=== PATIENT | female | born 1985 | race Caucasian/White ===

== ENCOUNTER 2016-07-26 14:16 | Outpatient (RCR) | payer OTHER ==
[~2016-07-26 14:16] MED LIST: COLA100C3 PO; CYCL10TA PO; GABA-282 PO; HYDR-3716 PO; IBUP80TA PO; NICO7DIS2 TD; OXYC1TAB23 PO; PERCOCET PO; PRED20TA PO; ROLLMIS2 XX; VALI5TAB PO; WELL100T PO
== END 2016-08-04 ==
LOC: M PT 14:16
PROVIDERS: ATTEND Nurse Practitioner
DX: Z51.89 Encounter for other specified aftercare (principal); M51.16 Intervertebral disc disorders with radiculopathy, lumbar region

== ENCOUNTER → 2016-09-04 | Outpatient (CLI) | payer OTHER ==
[2016-09-04 12:50] LABS: BASO # 0.1 K/mm3 (0.0-0.2); BASO % 1.1 % (0.0-1.0); EOS # 0.4 K/mm3 (0.0-0.50); EOS % 5.2 % (0.0-3.0); LYMPH # 3.3 K/mm3 (1.5-4.5); LYMPH % 38.3 % (24.0-44.0); MEAN CORPUSCULAR HEMOGLOBIN 30.4 pg (27.0-33.0); MEAN CORPUSCULAR HGB CONC 32.5 g/dl (32.0-36.5); MEAN CORPUSCULAR VOLUME 93.4 fl (80.0-96.0); MONO # 0.3 K/mm3 (0.0-0.8); MONO % 3.8 % (0.0-5.0); NEUTROPHILS # 4.2 K/mm3 (1.8-7.7); NEUTROPHILS % 50.3 % (36.0-66.0); RED CELL DISTRIBUTION WIDTH 12.6 % (11.5-14.5); WHITE BLOOD COUNT 8.4 K/mm3 (4.0-10.0)
[2016-09-04 13:32] LABS: VITAMIN B12 LEVEL 358 PG/ML
[2016-09-06 00:07] LABS: Lyme Disease IgG/IgM Antibodie <0.91 ISR (0.00-0.90); Lyme Disease IgM Ab Quantitati <0.80 index (0.00-0.79)
== END ==
LOC: M LAB 11:13
PROVIDERS: ATTEND Physician Assistant Medical
DX: M62.81 Muscle weakness (generalized) (principal)

== ENCOUNTER → 2016-09-11 | Outpatient (CLI) | payer OTHER ==
[2016-09-11 12:16] LABS: THYROXINE (T4) 2.1 UG/DL (4.5-12.0)
== END ==
LOC: M LAB 10:10
PROVIDERS: ATTEND Physician Assistant Medical
DX: E03.9 Hypothyroidism, unspecified (principal)

== ENCOUNTER → 2016-09-13 | Outpatient (CLI) | payer OTHER ==
--- NOTE | 2016-09-14 05:51 | REP ---
Clinical: Hypothyroidism. Technique: Real time hodge scale and color evaluation of the thyroid gland using curved array transducer. Findings: The thyroid gland is diffusely heterogeneous and mildly hyperemic without discrete focal cystic or nodule/mass. Right lobe measures 4.3 x 2.1 x 1.7 cm. Left lobe measures 4.1 x 1.6 x 1.7 cm. Isthmus measures 4.6 mm in width. Impression: Heterogeneous mildly hyperemic thyroid gland. No discrete cyst or nodule/mass identified. Signed by Ceferino King MD 09/14/2016 05:41 A
== END ==
LOC: M RAD 11:13
PROVIDERS: ATTEND Physician Assistant Medical
DX: E03.9 Hypothyroidism, unspecified (principal)

== ENCOUNTER 2016-10-03 13:56 | Outpatient (RCR) | payer OTHER | END 2016-10-04 | LOC: M PT 13:56 | PROVIDERS: ATTEND Physician Assistant Medical | DX: Z51.89 Encounter for other specified aftercare (principal); M54.2 Cervicalgia; M96.1 Postlaminectomy syndrome, not elsewhere classified ==

== ENCOUNTER → 2016-10-06 | Outpatient (CLI) | payer OTHER ==
[~2016-10-06] MED LIST changes: +ALBU17IN2 INH; +LEVO150T7 PO; +PRED10TA PO; +PREG25CA PO
--- NOTE | 2016-10-06 09:40 | REP ---
REASON: Mid abdominal pain. COMPARISON: None. Multiple sonographic images of the liver show the hepatic parenchymal pattern to be within normal limits. There are no masses or ductal dilatation. The common bile duct measures 4 mm. Multiple ultrasonographic images of the gallbladder show no abnormalities. There are no choleliths or pericholecystic edema. The imaged portion of the pancreas and right kidney were seen to be unremarkable. No free fluid was seen in the abdomen. IMPRESSION: Unremarkable right upper quadrant ultrasonography as described above. Signed by Jose Luis Lee DO 10/06/2016 11:55 A
== END ==
LOC: M RAD 07:33
PROVIDERS: ATTEND Physician Assistant Medical
DX: R10.9 Unspecified abdominal pain (principal)

== ENCOUNTER 2016-10-09 18:02 | Emergency (ER) | payer OTHER ==
[~2016-10-09] VITALS: Ht 162.6 cm; Wt 76.7 kg
[~2016-10-09 18:02] MED LIST changes: -ALBU17IN2 INH; -LEVO150T7 PO; -PRED10TA PO; -PREG25CA PO
[2016-10-09] MEDS ORDERED: LEVO150T7 PO (18:13)
[2016-10-09] MEDS ORDERED: PREG25CA PO (18:13)
[2016-10-09] MEDS ORDERED: HYDR-3716 PO (18:13)
[2016-10-09] MEDS ORDERED: ALBUTEROL SULFATE 2.5 MG/0.5 ML INH NEB SOLN NEB ONE (20:15)
[2016-10-09] MEDS ORDERED: IPRATROPIUM 0.5MG/ALBUTEROL 2.5MG INH SOL UD 3ML (DUONEB)(J7620) NEB ONE (20:15)
[2016-10-09] MEDS ORDERED: predniSONE 20 MG TAB PO ONE (20:15)
[2016-10-09] MEDS ORDERED: ACETAMINOPHEN 325 MG TAB PO ONE (20:15)
[2016-10-09] MEDS ORDERED: ALBU17IN2 INH (20:56)
[2016-10-09] MEDS ORDERED: PRED10TA PO (20:56)
[2016-10-09 21:02] VITALS: BP 128/72
--- NOTE | 2016-10-10 01:01 | REP ---
Clinical: Shortness of breath . Comparison: None . Technique: PA and lateral. Findings: The mediastinum and cardiac silhouette are normal. The lung bolaños are clear and without acute consolidation, effusion, or pneumothorax. The skeletal structures are intact and normal. Impression: 1. No acute cardiopulmonary process. Signed by Ceferino King MD 10/10/2016 12:53 A
== END 2016-10-09 21:03 | disposition home or self-care (01) ==
LOC: M ED 20:00
DX: J45.901 Unspecified asthma with (acute) exacerbation (principal); J06.9 Acute upper respiratory infection, unspecified

== ENCOUNTER → 2016-10-10 | Outpatient (CLI) | payer OTHER ==
[~2016-10-10] MED LIST changes: +ALBU17IN2 INH; +LEVO150T7 PO; +PRED10TA PO; +PREG25CA PO
--- NOTE | 2016-10-11 05:19 | REP ---
Clinical: Right inguinal and pelvic pain. Findings: The visualized small and large bowel is unremarkable. A few scattered sigmoid diverticula noted without acute diverticulitis. Pelvis demonstrates normal bladder and the age-appropriate uterus/adnexa. No pelvic fluid. No obvious adenopathy. No free air. No inguinal hernia. Musculoskeletal structures are intact. Impression: Normal noncontrast CT of the pelvis. Signed by Ceferino King MD 10/11/2016 05:10 A
== END ==
LOC: M RAD 14:22
PROVIDERS: ATTEND Physician Assistant Medical
DX: R10.2 Pelvic and perineal pain (principal)

== ENCOUNTER → 2016-10-12 | Outpatient (CLI) | payer OTHER ==
[2016-10-12 16:09] LABS: THYROXINE (T4) 14.4 UG/DL (4.5-12.0)
== END ==
LOC: M LAB 14:38
PROVIDERS: ATTEND Family Medicine
DX: E03.9 Hypothyroidism, unspecified (principal)

== ENCOUNTER → 2016-10-13 | Outpatient (CLI) | payer OTHER ==
--- NOTE | 2016-10-13 23:51 | ECWPNPC ---
PATIENT NAME: NARENDRA REYNAGA : 1985 GENDER: FEMALE VISIT DATE: 10/13/2016 DISCHARGE DATE: 10/13/16 1322 VISIT LOCKED DATE TIME: PHYSICIAN: STEPHAN AVILES RESOURCE: STEPHAN AVILES REASON FOR APPOINTMENT 1. CHRONIC PAIN HISTORY OF PRESENT ILLNESS FALL RISK SCREENIN31 Y/O FEMALE SENT HER BY SURGEON ,DR. SHARPE DUE TO UNCONTROLLED LOW BACK PAIN.HISTORY OF TWO LUMBAR SURGERIES,FIRST ONE IN AUGUST 2015 AND SECOND ONE MAY 2016.DID WELL FOR TWO MONTHS AFTER SECOND SURGERY AND THEN PAIN AND LOWER EXTREMITY NEUROPATHY HAS GOTTEN WORSE OVER PAST TWO MONTHS.RATING PAIN VAS 4/10.STATES SHE WAS TOLD TO STOP PT BY THERAPIST DUE TO INCREASE IN PAIN OVER THE PAST MONTH.STATES SHE IS LAYING DOWN MOST OF THE TIME.DENIES BOWEL OR BLADDER INCONTINENCE.NO RECENT FEVER,ILLNESS OR WEIGHT LOSS. SCREENING :NO FALLS IN THE PAST YEAR PAIN SCREENING: PATIENT HAS A COMPLAINT OF ACUTE OR CHRONIC PAIN :YES CURRENT MEDICATIONS TAKING VENTOLIN HFA 90 MCG/ACT AEROSOL SOLUTION 1-2 PUFFS NEEDED INHALATION EVERY 4 HRS TAKING LYRICA 25 MG CAPSULE 2 CAPSULES ORALLY BID TAKING PREDNISONE TAPER 1 TAB ORAL TAKING HYDROCODONE-ACETAMINOPHEN 7.5-325 MG TABLET 1 TABLET NEEDED ORALLY EVERY 6 HRS TAKING LEVOTHYROXINE SODIUM 150 MCG TABLET 1 TABLET ON AN EMPTY STOMACH IN THE MORNING ORALLY ONCE A DAY TAKING TUMS 500 MG TABLET CHEWABLE 1 TABLET ORALLY BID DISCONTINUED CHANTIX 1 TAB ORAL DAILY, NOTES: NEW MED PT IS GONNA START TODAY.HAS TO P/U FROM PHARMACY DISCONTINUED AMITRIPTYLINE HCL 50 MG TABLET 1 TABLET ORALLY AT BEDTIME DISCONTINUED GABAPENTIN 300 MG CAPSULE 1 CAPSULE ORALLY THREE TIMES A DAY DISCONTINUED IBUPROFEN 800 MG TABLET 1 TABLET NEEDED ORALLY THREE TIMES A DAY DISCONTINUED COLACE 100 MG CAPSULE 1 CAPSULE ORALLY TWICE PER DAY DISCONTINUED VALIUM 5 MG TABLET 2 TABLET ORALLY ON ARRIVAL TO CLINIC FOR PROCEDURE MDD=2 DISCONTINUED WELLBUTRIN 100 MG TABLET 1 TABLET ORALLY TWICE A DAY DISCONTINUED PERCOCET 5-325 MG TABLET 1-2 TABLET ORALLY EVERY 4- 6 HRS PRN PAIN MDD=6 DISCONTINUED NICOTINE 7 MG/24HR PATCH 24 HOUR 1 PATCH TO SKIN TRANSDERMAL ONCE A DAY MEDICATION LIST REVIEWED AND RECONCILED WITH THE PATIENT PAST MEDICAL HISTORY BACK AND LEFT LEG PAIN, CHRONIC ASTHMA HYPOTHYROID THORACIC BACK PAIN RIGHT GROIN PAIN HEART PALPITATION ALLERGIES PENICILLIN (FOR ALLERGIES USE ONLY): ANAPHYLAXIS: ALLERGY SULFA (FOR ALLERGY USE ONLY): ANAPHYLAXIS: ALLERGY SURGICAL HISTORY SPINE SURGERY LUMBAR L4-L5 08/10/15 HAND SURGERY RIGHT.TENDON--TRIGGER FINGER RELEASE LAMINECTOMY L3-4,L4-5 05/18/16 FAMILY HISTORY FATHER: ALIVE 56 YRS, COLON CANCER, DIAGNOSED WITH STROKE, CANCER MOTHER: ALIVE 53 YRS, DIAGNOSED WITH OTHER SIBLINGS: ALIVE 36 YRS, DIAGNOSED WITH PSYCHIATRIC CONDITIONS 1 SISTER(S) . DAD-ARTHRITIS, COLON CA, HYPERLIPIDEMIAMOM--ARTHRITIS, MYALGIA, HYPERLIPIDEMIA. SOCIAL HISTORY GENERAL: TOBACCO USE ARE YOU A:CURRENT SMOKER HOW MANY CIGARETTES A DAY DO YOU SMOKE?6-10 HOW SOON AFTER YOU WAKE UP DO YOU SMOKE YOUR FIRST CIGARETTE?31-60 MIN HOW OFTEN DO YOU SMOKE CIGARETTES?EVERY DAY PATIENT COUNSELED ON THE DANGERS OF TOBACCO USE AND URGED TO QUIT:04/04/2016 07-15-15 PATIENT HAS STARTED WELLBUTRIN AND NICOTINE PATCHES ARE YOU INTERESTED IN QUITTING?READY TO QUIT PREVIOUS QUIT ATTEMPTS?YES, WITHIN THE LAST 6 MONTHS. COUNSELED THE PATIENT ON TOBACCO USE, CESSATION [id number]/29/2016 07-15-15 ARRANGE PT TO START CHANTIX TODAY ADDITIONAL FINDINGS: TOBACCO USERLIGHT CIGARETTE SMOKER ((1-9 CIGS/DAY) ALCOHOL SCREENING HOW OFTEN DID YOU HAVE A DRINK CONTAINING ALCOHOL IN THE PAST YEAR?NEVER (0 POINTS) DID YOU HAVE A DRINK CONTAINING ALCOHOL IN THE PAST YEAR?YES DID YOU HAVE A DRINK CONTAINING ALCOHOL IN THE PAST YEAR?NO POINTS0 POINTS0 POINTS0 INTERPRETATIONNEGATIVE INTERPRETATIONNEGATIVE RECREATIONAL DRUG USE DRUG USE?NO PATIENT DENIES ABUSE OR MISSUSED OF ANY MEDICATION. PATIENT DENIES USE OF ANY ILLEGAL SUBSTANCE INCLUDING MARIJUANA OR COCAINE. CAFFEINE CAFFEINE USE?YES HOW OFTEN AND HOW MUCH? 2 CUPS OF COFFEE DAILY OCCUPATION: UNEMPLOYED. DIET: REGULAR. EXERCISE: NO REGULAR EXERCISE. MARITAL STATUS: . OTHERS AT HOME: MOTHER, . CONGREGATION NO YAZIDISM BELIEFS THAT WOULD IMPACT HEALTH CARE. LANGUAGE UKRAINIAN. LEARNING BARRIERS / SPECIAL NEEDS BARRIERS TO LEARNING?NO HEARING IMPAIRED?NO VISION IMPAIRED?NO COGNITIVELY IMPAIRED?NO READINESS TO LEARN?YES LEARNING PREFERENCES?NO LEARNING CAPABILITIES PRESENT?YES EMOTIONAL BARRIERS?NO SPECIAL DEVICES?YES :CANE PSYCHOLOGICAL HX TREATMENTNO NEW PATIENT PAIN DIARY TODAY'S VISITNOTES PATIENT DESCRIBES PAIN :BURNING, HAVE IT ALL THE TIME, ACHING, IT COMES AND GOES, SHARP, STABBING, TENDER, THROBBING, SORE, SHOOTING FROM 0-10, WHAT LEVEL IS YOUR PAIN TODAY?8 LEFT LOW BACK AND BUTTOCKS AND LEFT LEG PRECIPITATING FACTORS ANYTHING AND NOTHING ALLEVIATING FACTORS MEDICINE AND HEAT BUT MINIMAL RELIEF IMPACT ON FUNCTION UNABLE TO WORK AND UNABLE TO DO NORMAL ACTIVITIES OF DAILY LIVING WHEN DID YOU LAST EAT? DATE: TIME: WHEN DID YOU LAST DRINK? DATE: TIME: WHAT DID YOU LAST DRINK? MONTHS AGO NAME OF PERSON DRIVING YOU HOME CAB IS THERE A CHANCE YOU COULD BE ?NO HAVE YOU BEEN SICK IN THE LAST WEEK (COLD, COUGH, FEVER, FLU, ETC)NO DO YOU TAKE ANY BLOOD THINNERS?NO LAST DOSE DATE: TIME: DO YOU HAVE ANY RASHES OR OPEN SORES?NO ANY CHANGE IN BOWEL OR BLADDER CONTROL?NO ARE YOU ALLERGIC TO SHELLFISH OR IV DYE?NO ARE YOU DIABETIC?NO DO YOU HAVE A PACEMAKER OR DEFIBRILLATOR?NO ANY NEW PROBLEMS WITH MEDICINES OR NEW ALLERGIESNO ANY NEW PATTERNS OF PAIN OR NUMBNESS?YES INCREASED NUMBNESS TO LEFT FOOT ANY CHANGE IN YOUR MEDICAL CONDITION?NO HAVE YOU FALLEN IN THE LAST 6 MONTHS?NO DO YOU USE ANY TYPE OF TOBACCO (SMOKE, SMOKELESS, CHEW, ETC.)YES ARE YOU ABUSED, NEGLECTED, OR IN AN UNSAFE ENVIRONMENT?NO DO YOU HAVE THOUGHTS OF HURTING YOURSELF OR SOMEONE ELSE?NO DO YOU NEED ANY PRESCRIPTIONS?YES HYDROCODONE DO YOU HAVE ANY OTHER QUESTIONS OR CONCERNS?NO INTENSITY SCALE REVIEWED , NUMBER SCORE0 PAIN CLINIC PFS, CLERGY, PUBLIC HEALTH REFERRALS PFS REFERRAL NEEDED?NO CLERGY REFERRAL NEEDED?NO PUBLIC HEALTH REFERRAL NEEDED?NO WAS THE PROVIDER NOTIFIED OF ANY PERTINENT INFO?NO PATIENT: , DENIES USE OF ANY ILLEGAL SUBSTANCE INCLUDING MARIJUANA OR COCAINE, REPORTS BEING EMOTIONALLY STABLE, REPORTS HAVING A SAFE AND ADEQUATE PLACE TO STORE THE MEDICATIONS, IS AWARE THAT THEY ARE RESPONSIBLE AND GUARDIAN OF THE PRESCRIBED MEDICATIONS, DENIES RECREATIONAL DRUG USE. ADVANCE DIRECTIVES HEALTH CARE PROXY?YES NAME OF HCP MADISYN LOONEY CONTACT # FOR HCP [phone] DO YOU HAVE A COPY WITH YOU?NO DO YOU HAVE A DNR?NO WOULD YOU LIKE MORE INFORMATION?NO LIVING WILL?NO WOULD YOU LIKE MORE INFORMATION?NO POWER OF STOKER INSTALLER?NO WOULD YOU LIKE MORE INFORMATION?NO NO TRAVEL OUTSIDE US. HOSPITALIZATION/MAJOR DIAGNOSTIC PROCEDURE BACK AND LEG PAIN 2016 BACK SURGERIES REVIEW OF SYSTEMS CONSTITUTIONAL: ANY CHANGE IN YOUR MEDICAL CONDITION? YES, NEW DX OF ASTHMA AND HYPOTHYROIDISM . CHILLS NO . FEVER NO . INFECTION: DO YOU HAVE NEW INFECTIONS? NO . DO YOU HAVE HISTORY OF MRSA? NO . MUSCULOSKELETAL: ANY NEW PATTERNS OF PAIN OR NUMBNESS? YES,&QUOT; INSANE&QUOT; LEG BILATERAL, WEAKNESS IN BOTH LEGS SINCE LAMINECTOMY ARM PAIN LAST YEAR THAT IS GETTING WORSE. THORACIC REGION PAIN CHEST PAIN . SYTEMIC LUPUS NO . GASTROENTEROLOGY: ANY NEW CHANGE IN BOWEL CONTROL? NO . BARRETTS ESOPHAGUS NO . CIRRHOSIS NO . HEPATITIS NO . LIVER FAILURE NO . ACID REFLUX YES . UNEXPLAINED WEIGHT LOSS NO . GENITOURINARY: ANY NEW CHANGE IN BLADDER CONTROL? NO . IS THERE A CHANCE YOU COULD BE ? NO . HEMATOLOGY/LYMPH: DO YOU TAKE ANY BLOOD THINNERS? (FOR EXAMPLE- COUMADIN, PLAVIX, AGGRENOX, PLATEL, PRADAXA, OR XARELTO) NO . WHEN WAS YOUR LAST DOSE? DATE: TIME: . LOW PLATELET COUNT NO . SICKLE CELL DISEASE NO . VON WILLIEBRANDS NO . FACTOR V LEIDEN NO . THALLASEMIA NO . ANEMIA NO . EASY BRUISING NO . NEUROLOGY: HAVE YOU FALLEN IN THE PAST 6 MONTHS? NO . ANY NEW EXTREMITY NUMBNESS OR WEAKNESS? YES, WEAKNESS BOTH LEGS SINCE OR JULY . HEAD INJURY NO . DEMENTIA NO . CEREBRAL PALSY NO . MULTIPLE SCLEROSIS NO . DIZZINESS NO . HEADACHE NO . STROKES NO . VERTIGO NO . CARDIOLOGY: DO YOU HAVE A PACEMAKER OR DEFIBRILLATOR? NO . ANGINA NO . HEART ATTACK NO . HEART SURGERY NO . CONGESTIVE HEART FAILURE/FLUID OVERLOAD NO . CHEST PAIN PATIENT ADMITS, ACROSS ENTIRE CHEST, AGGRAVATED WITH DEEP BREATHING, AGGRAVATED WITH EXERCISE, RADIATES TO RIGHT AND LEFT SIDE, AGGRAVATED BY FOOD INTAKE, DULL, INCREASED WITH MOVEMENT OF TRUNK, SEVERAL TIMES PER DAY, SHARP . HIGH BLOOD PRESSURE NO . IRREGULAR HEART BEAT SKIPPED HEART BEAT, FEELS HEART RACING, OCCASIONALLY, POUNDING IN CHEST . RESPIRATORY: HAVE YOU BEEN SICK IN THE PAST WEEK? NO . FEVER NO . FLU LIKE SYMPTOMS? NO . CPAP NO . BYPAP NO . ASTHMA YES . EMPHYSEMA NO . CHRONIC LUNG DISEASES NO . SHORTNESS OF BREATH ON EXERTION YES . COUGH NO . SNORING YES, NEVER BEEN TESTED FOR NATHALIA . INTEGUMENTARY: DO YOU HAVE ANY RASHES OR OPEN SORES? NO . ALLERGIC/IMMUNO: ARE YOU ALLERGIC TO SHELLFISH OR IV DYE? NO . ANY NEW ALLERGIES? NO . PSYCHIATRIC: DO YOU HAVE THOUGHTS OF HURTING YOURSELF OR SOMEONE ELSE? NO . ARE YOU ABUSED, NEGLECTED, OR IN AN UNSAFE ENVIRONMENT? NO . ENDOCRINOLOGY: ARE YOU DIABETIC? NO . THYROID DISORDER HYPOTHYROID . OTHER: DO YOU NEED ANY PRESCRIPTIONS? NO . IF YES, PLEASE LIST: ____ . ANY NEW PROBLEMS WITH YOUR MEDICATIONS? NO . WHEN DID YOU LAST EAT? ____ . WHEN DID YOU LAST DRINK? ____ . WHAT DID YOU LAST DRINK? ____ . NAME OF PERSON DRIVING YOU HOME? ____ . DO YOU HAVE ANY OTHER QUESTIONS OR CONCERNS PAIN RELIEF . REVIEWED BY: PROVIDER: STEPHAN MUNSON . VITAL SIGNS WT 170.4 LBS, HT 64 IN, BMI 29.25 INDEX, BP 140/88 MM HG, HR 86 /MIN, RR 16 /MIN, TEMP 97.5 F, OXYGEN SAT % 99%, NA INITIALS TL [id number], REVIEWED BY: AD. EXAMINATION GENERAL EXAMINATION: GENERAL APPEARANCE:UNCOMFORTABLE. PSYCHAFFECT NORMAL. NECK:NO LYMPHADENOPATHY, NO MASS. LUNGS:LUNG FERGUSON ARE CLEAR TO AUSCULTATION BILATERALLY. GOOD MOVEMENT OF AIR. HEART:S1, S2 IN A REGULAR RATE AND RHYTHM. NO SIGNIFICANT MURMURS, RUBS OR GALLOPS NOTED. BACK:WELL HEALED SURGICAL SCAR., NEGATIVE BILATERAL SI JOINT TENDERNESS.NEGATIVE, PERILUMBAR TENDERNESS.. ABDOMEN:SOFT, NON-TENDER/NON-DISTENDED, BOWEL SOUNDS PRESENT. DIAGNOSTIC DATA-MRI L/S [id number]-REVIEWED. THORACIC SPINE/UPPER BACK: VERTEBRAL SPINE TENDERNESS:TENDERNESS OVER THORACIC SPINE AND THORACIC PARASPINAL REGION.. CERVICAL SPINE/NECK: VERTEBRAL SPINE TENDERNESS:TENDER OVER CERVICAL AND CERVICAL PARASPINAL. ASSESSMENTS LOW BACK PAIN AT MULTIPLE SITES - M54.5 (PRIMARY) LUMBAR RADICULOPATHY - M54.16 TREATMENT LOW BACK PAIN AT MULTIPLE SITES NOTES: CONTINUE EVALUATION WITH DUE TO PROGRESSIVE PAIN AND INCREASE IN LOWER EXTREMITY NEUROPATHY POST LUMBAR SURGERY IN MAY 2016.SUGGEST MRI WITH CONTRAST TO RULE OUT POST OPERATIVE INFECTION.ALSO SHE IS CURRENTLY BEING TREATED WITH LEVOTHYROXINE FOR NEW ONSET OF HYPOTHYROID.HAVING SIDE EFFECTS AND FREQUENT MEDICATION ADJUSTMENTS,THEREFORE I WONT INTERVENE WITH ANY PAIN MEDICATION AT THIS TIME.WE WILL SEE HER BACK IN TWO MONTHS ONCE STABALIZED. PROCEDURE CODES FA211 ESTABILISHED PATIENT [facility] CHARGE DISPOSITION & COMMUNICATION FOLLOW UP 2 MONTHS ELECTRONICALLY SIGNED BY ARPIT FORTUNE ON 10/13/2016 AT 04:31 PM EDT DISCLAIMER : THIS IS A VISIT SUMMARY EXTRACTED FROM THE [employer] CHART. IT IS NOT A COPY OF THE [employer] PROGRESS NOTE. NICKI
== END ==
LOC: M PAIN 09:40
PROVIDERS: ATTEND Nurse Practitioner Family
DX: M54.16 Radiculopathy, lumbar region (principal); Z88.2 Allergy status to sulfonamides; Z88.0 Allergy status to penicillin; Z79.899 Other long term (current) drug therapy; F17.210 Nicotine dependence, cigarettes, uncomplicated

== ENCOUNTER → 2016-10-29 | Outpatient (CLI) | payer OTHER ==
[2016-10-29 12:01] LABS: BASO # 0.1 K/mm3 (0.0-0.2); BASO % 1.6 % (0.0-1.0); EOS # 0.3 K/mm3 (0.0-0.50); EOS % 4.3 % (0.0-3.0); LYMPH % 43.2 % (24.0-44.0); MEAN CORPUSCULAR HEMOGLOBIN 32.7 pg (27.0-33.0); MEAN CORPUSCULAR HGB CONC 33.9 g/dl (32.0-36.5); MEAN CORPUSCULAR VOLUME 96.5 fl (80.0-96.0); MONO # 0.5 K/mm3 (0.0-0.8); MONO % 6.4 % (0.0-5.0); NEUTROPHILS % 42.4 % (36.0-66.0); RED CELL DISTRIBUTION WIDTH 12.6 % (11.5-14.5)
[2016-10-29 12:29] LABS: ALBUMIN 3.8 GM/DL (3.2-5.2); ALKALINE PHOSPHATASE 53 U/L (45-117); ALT/SGPT 28 U/L (12-78); ANION GAP 6 MEQ/L (8-16); AST/SGOT 20 U/L (15-37); BILIRUBIN,TOTAL 0.5 MG/DL (0.2-1.0); BLOOD UREA NITROGEN 8 MG/DL (7-18); CALCIUM LEVEL 8.8 MG/DL (8.5-10.1); CARBON DIOXIDE LEVEL 28 MEQ/L (21-32); CHLORIDE LEVEL 104 MEQ/L (98-107); CREATININE FOR GFR 0.74 MG/DL (0.55-1.02); GLOMERULAR FILTRATION RATE > 60.0 (>60); GLUCOSE, FASTING 90 MG/DL (70-105); POTASSIUM SERUM 3.9 MEQ/L (3.5-5.1); SODIUM LEVEL 138 MEQ/L (136-145); T UPTAKE 35 % (30-39); THYROXINE (T4) 11.5 UG/DL (4.5-12.0); TOTAL PROTEIN 7.6 GM/DL (6.4-8.2)
[2016-10-30 10:05] LABS: VITAMIN B12 LEVEL 234 PG/ML
[2016-10-30 10:06] LABS: FOLATE 10.3 NG/ML
== END ==
LOC: M LAB 11:29
PROVIDERS: ATTEND Physician Assistant Medical
DX: E03.9 Hypothyroidism, unspecified (principal)

== ENCOUNTER 2016-11-02 13:37 | Outpatient (RCR) | payer OTHER ==
[~2016-11-02 13:37] MED LIST changes: -COLA100C3 PO; +COLA100C5 PO; -PRED10TA PO; +PRED10TA2 PO
== END 2016-11-03 ==
LOC: M PT 13:37
PROVIDERS: ATTEND Physician Assistant Medical
DX: Z51.89 Encounter for other specified aftercare (principal); M54.2 Cervicalgia

== ENCOUNTER → 2016-11-14 | Outpatient (CLI) | payer OTHER ==
--- NOTE | 2016-12-08 01:12 | ECWPNPC ---
PATIENT NAME: NARENDRA REYNAGA : 1985 GENDER: FEMALE VISIT DATE: 11/14/2016 DISCHARGE DATE: 11/14/16 1549 VISIT LOCKED DATE TIME: PHYSICIAN: TOÑO CORTEZ RESOURCE: TOÑO CORTEZ REASON FOR APPOINTMENT 1. BACK HISTORY OF PRESENT ILLNESS HISTORY OF PRESENT ILLNESS: PAIN THE PATIENT DESCRIBES THE PAIN... FALL RISK SCREENING: SCREENING :NO FALLS IN THE PAST YEAR TODAY'S VISIT: NOTES: RATES PAIN TODAY 5/10. NOTES PAIN FROM BASE OF NECK AND INTO BOTH LOWER EXTREMITIES FROM BUTTUCK TO FEET. IS CURRENTLY IN PT BIW. LOW BACK WAS BETTER BUT WHEN THORACIC AND UPPER BACK STARTED, LOW BACK BECAME WEAKER. HAS CONSTANT ACHY PAIN IN LEGS. OCCASIONAL NERVE PAIN IN LOW BACK. HAVING DIFFICULTY TO LIFT LEGS WITH WEAKNESS AND PAIN. OCCASIONAL SWELLING OF LEGS. . CURRENT MEDICATIONS TAKING VENTOLIN HFA 90 MCG/ACT AEROSOL SOLUTION 1-2 PUFFS NEEDED INHALATION EVERY 4 HRS TAKING LYRICA 25 MG CAPSULE 2 CAPSULES ORALLY BID TAKING LEVOTHYROXINE SODIUM 125 MCG TABLET 1 TABLET ON AN EMPTY STOMACH IN THE MORNING ORALLY ONCE A DAY TAKING VITAMIN D (ERGOCALCIFEROL) 38503 UNIT CAPSULE 1 CAPSULE ORALLY WEEKLY / SUNDAY NOT-TAKING PREDNISONE TAPER 1 TAB ORAL NOT-TAKING HYDROCODONE-ACETAMINOPHEN 7.5-325 MG TABLET 1 TABLET NEEDED ORALLY EVERY 6 HRS NOT-TAKING TUMS 500 MG TABLET CHEWABLE 1 TABLET ORALLY BID MEDICATION LIST REVIEWED AND RECONCILED WITH THE PATIENT PAST MEDICAL HISTORY BACK AND LEFT LEG PAIN, CHRONIC ASTHMA HYPOTHYROID THORACIC BACK PAIN RIGHT GROIN PAIN HEART PALPITATION ALLERGIES PENICILLIN (FOR ALLERGIES USE ONLY): ANAPHYLAXIS: ALLERGY SULFA (FOR ALLERGY USE ONLY): ANAPHYLAXIS: ALLERGY REVIEW OF SYSTEMS REVIEWED BY: PROVIDER: TOÑO MUNSON . CONSTITUTIONAL: ANY CHANGE IN YOUR MEDICAL CONDITION? NO . CHILLS NO . FEVER NO . INFECTION: DO YOU HAVE NEW INFECTIONS? NO . DO YOU HAVE HISTORY OF MRSA? NO . MUSCULOSKELETAL: ANY NEW PATTERNS OF PAIN OR NUMBNESS? YES, ARMS ARE GOING NUMB NOW. IT COMES AND GOES . GASTROENTEROLOGY: ANY NEW CHANGE IN BOWEL CONTROL? NO . GENITOURINARY: ANY NEW CHANGE IN BLADDER CONTROL? NO . IS THERE A CHANCE YOU COULD BE ? NO . HEMATOLOGY/LYMPH: DO YOU TAKE ANY BLOOD THINNERS? (FOR EXAMPLE- COUMADIN, PLAVIX, AGGRENOX, PLATEL, PRADAXA, OR XARELTO) NO . WHEN WAS YOUR LAST DOSE? DATE: TIME: . NEUROLOGY: HAVE YOU FALLEN IN THE PAST 6 MONTHS? NO . ANY NEW EXTREMITY NUMBNESS OR WEAKNESS? NO . CARDIOLOGY: DO YOU HAVE A PACEMAKER OR DEFIBRILLATOR? NO . RESPIRATORY: HAVE YOU BEEN SICK IN THE PAST WEEK? NO . FEVER NO . FLU LIKE SYMPTOMS? NO . ASTHMA REQUIRED PREDNISONE TAPER, STILL WITH SOB . COUGH NO . INTEGUMENTARY: DO YOU HAVE ANY RASHES OR OPEN SORES? NO . ALLERGIC/IMMUNO: ARE YOU ALLERGIC TO SHELLFISH OR IV DYE? NO . ANY NEW ALLERGIES? NO . PSYCHIATRIC: DO YOU HAVE THOUGHTS OF HURTING YOURSELF OR SOMEONE ELSE? NO . ARE YOU ABUSED, NEGLECTED, OR IN AN UNSAFE ENVIRONMENT? NO . ENDOCRINOLOGY: ARE YOU DIABETIC? NO . OTHER: DO YOU NEED ANY PRESCRIPTIONS? YES . IF YES, PLEASE LIST: NEEDS TO TALK TO YOU ABOUT THIS . ANY NEW PROBLEMS WITH YOUR MEDICATIONS? NO . WHEN DID YOU LAST EAT? ____ . WHEN DID YOU LAST DRINK? ____ . WHAT DID YOU LAST DRINK? ____ . NAME OF PERSON DRIVING YOU HOME? ____ . DO YOU HAVE ANY OTHER QUESTIONS OR CONCERNS NO . VITAL SIGNS WT 172.4 LBS, HT 64 IN, BMI 29.59 INDEX, BP 112/83 MM HG, HR 88 /MIN, RR 16 /MIN, TEMP 97.3 F, OXYGEN SAT % 96%, NA INITIALS TL 1435, REVIEWED BY: NL. EXAMINATION GENERAL EXAMINATION: PSYCHALERT , ORIENTED X 3 . LUNGS:CLEAR TO AUSCULTATION BILATERALLY. HEART:HEART RATE REGULAR. MUSCULOSKELETAL:TENDER TOPALPATION OVER LUMOSACRAL AXIS WITHTRIGGER POINTS AND TIGHT FIBEROUS BANDS IDENTIFIED IN THIS AREA. MUSCLE STRENGTH TESTING 54+ LEFT LOWER EXTREMITIY, 5/5 ON RIGHT. SLOW TO RISE TO STANDING POSIITION. POSTURE UPRIGHT.. GAIT SLOW, ANTALGIC. DIAGNOSTIC TESTS REVIEWEDREVIEWED MRI OF LUMBAR SPINE COMPLETED ON . DEMONSTRATES RESOLUTION OF PREVIOUS L4-5 DISC PROTRUSION AND NEW EVIDENCE OF L-5, L5-S1 LAMINECTOMY AND DISCECTOMY. . ASSESSMENTS LOW BACK PAIN AT MULTIPLE SITES - M54.5 (PRIMARY) LUMBAR RADICULOPATHY - M54.16 LUMBAR POST-LAMINECTOMY SYNDROME - M96.1 TREATMENT LOW BACK PAIN AT MULTIPLE SITES STOP HYDROCODONE-ACETAMINOPHEN TABLET, 7.5-325 MG, 1 TABLET NEEDED, ORALLY, EVERY 6 HRS START PERCOCET TABLET, 5-325 MG, 1 TABLET NEEDED, ORALLY, EVERY 6 HRS PRN PAIN MDD=3, 30 DAY(S), 45, REFILLS 0 LAB: ACETYLCHOLINE RECEPTOR AB ACHR BINDING AB < 0.03 (0.00-0.24 - NMOL/L) LAB: ERYTHROCYTE SEDIMENTATION RATE SED RATE 12 (0-20 - MM/HR) JEFFERY SPINE CERVICAL W/AP/FLEX/[id number] [facility] : SPINE,THORACIC W/BENDING [id number],SUSAN M 11/14/2016 3:25:38 PM > THORACIC PAIN - UNABLE TO TAKE DEEP BREATH TRIGGER POINT 3 + AREASTOÑO CORTEZ 11/14/2016 3:27:47 PM > NECK/SHOULDER BLADES - MID THORACIC NOTES: CONTINUE PHYSICAL THERAPY WEAN LYRICA,TRIGGER POINT INJECTION: YOUR EXPERIENCE MATERIAL WAS PRINTED,TRIGGER POINT INJECTION MATERIAL WAS PRINTED,TRIGGER POINT INJECTION MATERIAL WAS PRINTED. CLINICAL NOTES: ISTOP REGISTRY REVIEWED AND DEMNOSTRATES COMPLLIANCE., RISKS AND BENEFITS OF NARCOTIC/OPIOD MEDICATIONS WERE REVIEWED WITH PATIENT - THIS INCLUDES BUT IS NOT LIMITED TO RISK OF DEPENDANCE/DEVELOPMENT OF ADDICTION, MOOD DISTURBANCE AND DEPRESSION, OSTEOPOROSIS, HORMONAL AND LABIDAL CHANGES, RESPIRATORY DEPRESSION AND . PATIENT IS ADVISED NOT TO DRIVE WHILE ON THESE MEDICATIONS. PREVENTIVE MEDICINE DISCUSSED TRIGGER POINT INJECTIONS AND PRE PROCEDURE CARE AND PT EXPRESSED UNDERSTANDING. DISPOSITION & COMMUNICATION FOLLOW UP 1 MONTH (REASON: CHECK AUTH FOR TPI) ELECTRONICALLY SIGNED BY TRINIDAD WORTHINGTON ON 12/07/2016 AT 07:07 PM EDT DISCLAIMER : THIS IS A VISIT SUMMARY EXTRACTED FROM THE [employer] CHART. IT IS NOT A COPY OF THE [employer] PROGRESS NOTE. NICKI
== END ==
LOC: M PAIN 14:20
PROVIDERS: ATTEND Nurse Practitioner Family
DX: M54.16 Radiculopathy, lumbar region (principal); M96.1 Postlaminectomy syndrome, not elsewhere classified; Z79.899 Other long term (current) drug therapy; Z88.0 Allergy status to penicillin; Z88.2 Allergy status to sulfonamides

== ENCOUNTER → 2016-11-16 | Outpatient (CLI) | payer OTHER ==
--- NOTE | 2016-11-17 06:32 | REP ---
Clinical: thoracic pain. Technique: AP, lateral, flexion/extension and swimmers views. Findings: Alignment and kyphosis is maintained. Vertebral bodies intact. No acute fracture / compression injury or subluxation. No degenerative changes. Paravertebral soft tissues are normal. Impression: Normal thoracic spine series. Signed by Ceferino King MD 11/17/2016 03:26 A
--- NOTE | 2016-11-17 06:32 | REP ---
Clinical: Neck pain. Technique: AP, lateral, bilateral oblique, flexion/extension and open-mouth views of the cervical spine. Findings: Mild reversal of normal lordosis at the C4-5 level is nonspecific. Alignment is otherwise maintained. No acute fracture / compression injury or subluxation. Minimal disc space narrowing at the C4-5 level noted. Remainder examination appears normal. Neural foramen appear patent. C1-C2 articulation and odontoid process normal. Impression: Mild reversal of normal lordosis at C4-5 with minimal disc space narrowing. Signed by Ceferino King MD 11/17/2016 03:20 A
== END ==
LOC: M LAB 12:38
PROVIDERS: ATTEND Nurse Practitioner Family
DX: M54.5 Low back pain (principal)

== ENCOUNTER 2016-11-22 11:45 | Outpatient (RCR) | payer OTHER | END 2016-12-04 | LOC: M PT 11:45 | PROVIDERS: ATTEND Physician Assistant Medical | DX: Z51.89 Encounter for other specified aftercare (principal); M54.2 Cervicalgia ==

== ENCOUNTER → 2016-11-23 | Outpatient (CLI) | payer OTHER ==
[~2016-11-23] MED LIST changes: +BUPIVACAINE HCL 0.25% 10 ML VIAL As Ordered ONE; +BUPIVACAINE HCL 0.25% 30 ML VIAL As Ordered ONE; +TRIAMCINOLONE ACETONIDE SUSP 40 MG/ML VIAL (J3301) As Ordered ONE; +diazePAM 5 MG TAB As Ordered ONE; +oxyCODONE 5MG TAB As Ordered ONE
--- NOTE | 2016-12-03 23:28 | ECWPNPC ---
PATIENT NAME: NARENDRA REYNAGA : 1985 GENDER: FEMALE VISIT DATE: 11/23/2016 DISCHARGE DATE: 11/23/16 1026 VISIT LOCKED DATE TIME: PHYSICIAN: MICHAEL WAN RESOURCE: MICHAEL WAN REASON FOR APPOINTMENT 1. TPI HISTORY OF PRESENT ILLNESS HISTORY OF PRESENT ILLNESS: PAIN THE PATIENT DESCRIBES THE PAIN... FALL RISK SCREENING: SCREENING :NO FALLS IN THE PAST YEAR CURRENT MEDICATIONS TAKING VENTOLIN HFA 90 MCG/ACT AEROSOL SOLUTION 1-2 PUFFS NEEDED INHALATION EVERY 4 HRS, NOTES: AWHILE TAKING LYRICA 25 MG CAPSULE 2 CAPSULES ORALLY BID, NOTES: 11/14/16 TAKING LEVOTHYROXINE SODIUM 125 MCG TABLET 1 TABLET ON AN EMPTY STOMACH IN THE MORNING ORALLY ONCE A DAY, NOTES: 62911/23/16 TAKING VITAMIN D (ERGOCALCIFEROL) 38942 UNIT CAPSULE 1 CAPSULE ORALLY WEEKLY / SUNDAY, NOTES: SUNDAY TAKING PERCOCET 5-325 MG TABLET 1 TABLET NEEDED ORALLY EVERY 6 HRS PRN PAIN MDD=3, NOTES: 63511/23/16 NOT-TAKING PREDNISONE TAPER 1 TAB ORAL NOT-TAKING TUMS 500 MG TABLET CHEWABLE 1 TABLET ORALLY BID MEDICATION LIST REVIEWED AND RECONCILED WITH THE PATIENT PAST MEDICAL HISTORY BACK AND LEFT LEG PAIN, CHRONIC ASTHMA HYPOTHYROID THORACIC BACK PAIN RIGHT GROIN PAIN HEART PALPITATION ALLERGIES PENICILLIN (FOR ALLERGIES USE ONLY): ANAPHYLAXIS: ALLERGY SULFA (FOR ALLERGY USE ONLY): ANAPHYLAXIS: ALLERGY REVIEW OF SYSTEMS REVIEWED BY: PROVIDER: . CONSTITUTIONAL: ANY CHANGE IN YOUR MEDICAL CONDITION? NO . CHILLS NO . FEVER NO . INFECTION: DO YOU HAVE NEW INFECTIONS? NO . DO YOU HAVE HISTORY OF MRSA? NO . MUSCULOSKELETAL: ANY NEW PATTERNS OF PAIN OR NUMBNESS? NO . GASTROENTEROLOGY: ANY NEW CHANGE IN BOWEL CONTROL? NO . GENITOURINARY: ANY NEW CHANGE IN BLADDER CONTROL? NO . IS THERE A CHANCE YOU COULD BE ? NO . HEMATOLOGY/LYMPH: DO YOU TAKE ANY BLOOD THINNERS? (FOR EXAMPLE- COUMADIN, PLAVIX, AGGRENOX, PLATEL, PRADAXA, OR XARELTO) NO . WHEN WAS YOUR LAST DOSE? DATE: TIME: . NEUROLOGY: HAVE YOU FALLEN IN THE PAST 6 MONTHS? NO . ANY NEW EXTREMITY NUMBNESS OR WEAKNESS? NO . CARDIOLOGY: DO YOU HAVE A PACEMAKER OR DEFIBRILLATOR? NO . RESPIRATORY: HAVE YOU BEEN SICK IN THE PAST WEEK? NO . FEVER NO . FLU LIKE SYMPTOMS? NO . COUGH NO . INTEGUMENTARY: DO YOU HAVE ANY RASHES OR OPEN SORES? NO . ALLERGIC/IMMUNO: ARE YOU ALLERGIC TO SHELLFISH OR IV DYE? NO . ANY NEW ALLERGIES? NO . PSYCHIATRIC: DO YOU HAVE THOUGHTS OF HURTING YOURSELF OR SOMEONE ELSE? NO . ARE YOU ABUSED, NEGLECTED, OR IN AN UNSAFE ENVIRONMENT? NO . ENDOCRINOLOGY: ARE YOU DIABETIC? NO . OTHER: DO YOU NEED ANY PRESCRIPTIONS? NO . IF YES, PLEASE LIST: ____ . ANY NEW PROBLEMS WITH YOUR MEDICATIONS? NO . WHEN DID YOU LAST EAT? ____11/22/161929 . WHEN DID YOU LAST DRINK? ____11/23/1636 . WHAT DID YOU LAST DRINK? ____WATER . NAME OF PERSON DRIVING YOU HOME? ____TAXI . DO YOU HAVE ANY OTHER QUESTIONS OR CONCERNS NO . VITAL SIGNS WT 169.4 LBS, HT 64 IN, BMI 29.07 INDEX, BP 119/95 MM HG, HR 83 /MIN, RR 18 /MIN, TEMP 98 F, OXYGEN SAT % 97%, SAFE IN ENV? (Y/N) YES, NA INITIALS LUIZA, REVIEWED BY: LUIZA. ASSESSMENTS MYALGIA - M79.1 (PRIMARY) PROCEDURES PN TRIGGER POINT INJECTION WITH STEROIDS PRE PROCEDURE DIAGNOSIS 1. MYALGIA 2. PAIN AT RIGHT NECK AREA AND BILATERAL THORACIC AREA POST PROCEDURE DIAGNOSIS 1. MYALGIA 2. PAIN AT RIGHT NECK AREA AND BILATERAL THORACIC AREA PROCEDURE TRIGGER POINT INJECTION AT RIGHT NECK AREA AND BILATERAL THORACIC AREA SURGEON DR. MICHAEL WAN EQUIPMENT CLEANER AND TESTER NONE ANESTHESIA LOCAL PRE PROCEDURE NOTE THE PATIENT HAS A HISTORY OF CHRONIC PAIN AT THE RIGHT NECK AREA AND RIGHT AND LEFT THORACIC AREA. I EVALUATE THE PATIENT AND REVIEWED THE CHART. THERE IS EVIDENCE OF BANDS OF TISSUE WITH RESTRICTION OF MOVEMENT AND PRESENCE OF TRIGGER POINT AT THE AFFECTED AREA. I WENT OVER THE RISKS, ALTERNATIVES, AND BENEFITS ASSOCIATED WITH THIS PROCEDURE. THE PATIENT WOULD LIKE TO PROCEED AND GIVE CONSENT TO PERFORMED THE PROCEDURE. THE PATIENT DENIES UNEXPLAINABLE WEIGHT LOSS, FEVER, CHILLS, OR NEW CHANGES IN URINARY OR BOWEL CONTROL DESCRIPTION OF PROCEDURE THE PATIENT WAS BROUGHT TO THE PROCEDURE ROOM AND PLACED IN THE SITTING POSITION. THE AREA WAS CLEANED WITH ALCOHOL. THE PROCEDURE WAS DONE USING ASEPTIC STERILE TECHNIQUE. I CHECKED LATERALITY AND THE LEVEL WHERE THE PROCEDURE WAS GOING TO BE PERFORMED WITH THE PATIENT AND THE SUPPORTING STAFF AT THE MOMENT OF THE TIME OUT IN THE PROCEDURE ROOM. USING A 25-GAUGE NEEDLE, TRIGGER POINTS WERE INJECTED AT THE RIGHT NECK AREA AND RIGHT AND LEFT THORACIC AREA WITH A TOTAL OF 40 ML OF BUPIVACAINE 0.25% AND KENALOG 40 MG. THERE WAS NO EVIDENCE OF BLOOD, PARESTHESIA OR CEREBROSPINAL FLUID DURING THE PROCEDURE. THE PATIENT WAS SENT TO THE RECOVERY ROOM. THE PATIENT WAS MOVING THE EXTREMITIES AND DOING WELL. THERE WAS NO COMPLICATION DURING THE PROCEDURE POST PROCEDURE NOTE THE PATIENT WILL BE SEEN IN A FOLLOW UP IN THE NEXT FEW WEEKS. INSTRUCTIONS WERE GIVEN, QUESTIONS WERE ANSWERED, AND THE PATIENT EXPRESSED UNDERSTANDING AND AGREES WITH THE PLAN. I, SHAWNA BOLANOS, DOCUMENTED THE ABOVE INFORMATION ACTING A SCRIBE FOR DR. WAN. I HAVE REVIEWED THE ABOVE DOCUMENT, WRITTEN BY SHAWNA LOPES AND I VERIFY THAT IT IS ACCURATE PROCEDURE CODES 83285 INJECT TRIGGER POINTS 3/> DISPOSITION & COMMUNICATION FOLLOW UP 3 WEEKS ELECTRONICALLY SIGNED BY MICHAEL WAN MD ON 12/03/2016 AT 08:25 PM EDT DISCLAIMER : THIS IS A VISIT SUMMARY EXTRACTED FROM THE [employer] CHART. IT IS NOT A COPY OF THE [employer] PROGRESS NOTE. NICKI
== END ==
LOC: M PAIN 08:30
PROVIDERS: ATTEND Anesthesiology
DX: G89.29 Other chronic pain (principal); M79.1 Myalgia; M54.2 Cervicalgia; M54.6 Pain in thoracic spine; Z79.891 Long term (current) use of opiate analgesic; Z79.899 Other long term (current) drug therapy; Z88.0 Allergy status to penicillin; Z88.2 Allergy status to sulfonamides

== ENCOUNTER → 2016-12-11 | Outpatient (REF) | payer OTHER ==
[~2016-12-11] MED LIST changes: -BUPIVACAINE HCL 0.25% 10 ML VIAL As Ordered ONE; -BUPIVACAINE HCL 0.25% 30 ML VIAL As Ordered ONE; -TRIAMCINOLONE ACETONIDE SUSP 40 MG/ML VIAL (J3301) As Ordered ONE; -diazePAM 5 MG TAB As Ordered ONE; -oxyCODONE 5MG TAB As Ordered ONE
[2016-12-11 19:11] LABS: FREE T4 1.64 NG/DL (0.76-1.46)
== END ==
LOC: M SFHCPLAZ 15:13
PROVIDERS: ATTEND Physician Assistant Medical
DX: E03.9 Hypothyroidism, unspecified (principal)

== ENCOUNTER → 2016-12-14 | Outpatient (CLI) | payer OTHER ==
--- NOTE | 2017-01-03 01:05 | ECWPNPC ---
PATIENT NAME: NARENDRA REYNAGA : 1985 GENDER: FEMALE VISIT DATE: 12/14/2016 DISCHARGE DATE: 12/14/16 1534 VISIT LOCKED DATE TIME: PHYSICIAN: TOÑO CORTEZ RESOURCE: TOÑO CORTEZ REASON FOR APPOINTMENT 1. POST TPI HISTORY OF PRESENT ILLNESS HISTORY OF PRESENT ILLNESS: PAIN THE PATIENT DESCRIBES THE PAIN... FALL RISK SCREENING: SCREENING :NO FALLS IN THE PAST YEAR TODAY'S VISIT: NOTES: RATES PAIN TODAY 12/14 . IS S/P TPI 11/23/16 WHICH HELPED FOR ABOUT ONE WEEK. AND AT THIS POINT PAIN HAS RETURNED. WORSE OF PAIN IS CENTERED OVER RIGHT SCAPULA WITH GENERALIZEDE DISCOMFORT FROM BASE OF NECK AND ACROSS THE ENTIRE BACK. . CURRENT MEDICATIONS TAKING VENTOLIN HFA 90 MCG/ACT AEROSOL SOLUTION 1-2 PUFFS NEEDED INHALATION EVERY 4 HRS TAKING LEVOTHYROXINE SODIUM 125 MCG TABLET 1 TABLET ON AN EMPTY STOMACH IN THE MORNING ORALLY ONCE A DAY TAKING VITAMIN D (ERGOCALCIFEROL) 75815 UNIT CAPSULE 1 CAPSULE ORALLY WEEKLY / SUNDAY TAKING PERCOCET 5-325 MG TABLET 1 TABLET NEEDED ORALLY EVERY 6 HRS PRN PAIN MDD=3 45 TABS FOR 30 DAY SUPPLY TAKING CYMBALTA 30 MG CAPSULE DELAYED RELEASE PARTICLES 1 CAPSULE ORALLY DAILY MEDICATION LIST REVIEWED AND RECONCILED WITH THE PATIENT PAST MEDICAL HISTORY BACK AND LEFT LEG PAIN, CHRONIC ASTHMA HYPOTHYROID THORACIC BACK PAIN RIGHT GROIN PAIN HEART PALPITATION ALLERGIES PENICILLIN (FOR ALLERGIES USE ONLY): ANAPHYLAXIS: ALLERGY SULFA (FOR ALLERGY USE ONLY): ANAPHYLAXIS: ALLERGY SOCIAL HISTORY GENERAL: TOBACCO USE ARE YOU A:FORMER SMOKER HOW LONG HAS IT BEEN SINCE YOU LAST SMOKED?6-12 MONTHS ADDITIONAL FINDINGS: TOBACCO USERLIGHT CIGARETTE SMOKER ((1-9 CIGS/DAY) ALCOHOL SCREENING HOW OFTEN DID YOU HAVE A DRINK CONTAINING ALCOHOL IN THE PAST YEAR?NEVER (0 POINTS) DID YOU HAVE A DRINK CONTAINING ALCOHOL IN THE PAST YEAR?YES DID YOU HAVE A DRINK CONTAINING ALCOHOL IN THE PAST YEAR?NO POINTS0 POINTS0 POINTS0 INTERPRETATIONNEGATIVE INTERPRETATIONNEGATIVE RECREATIONAL DRUG USE DRUG USE?NO PATIENT DENIES ABUSE OR MISSUSED OF ANY MEDICATION. PATIENT DENIES USE OF ANY ILLEGAL SUBSTANCE INCLUDING MARIJUANA OR COCAINE. CAFFEINE CAFFEINE USE?YES HOW OFTEN AND HOW MUCH? 2 CUPS OF COFFEE DAILY OCCUPATION: UNEMPLOYED. DIET: REGULAR. EXERCISE: NO REGULAR EXERCISE. MARITAL STATUS: . OTHERS AT HOME: MOTHER, . MORAVIAN NO BAPTIST BELIEFS THAT WOULD IMPACT HEALTH CARE. LANGUAGE [place]. LEARNING BARRIERS / SPECIAL NEEDS CHANGE FROM LAST VISIT?NO BARRIERS TO LEARNING?NO HEARING IMPAIRED?NO VISION IMPAIRED?NO COGNITIVELY IMPAIRED?NO READINESS TO LEARN?YES LEARNING PREFERENCES?NO LEARNING CAPABILITIES PRESENT?YES EMOTIONAL BARRIERS?NO SPECIAL DEVICES?YES :CANE OPTICAL COATING TECHNICIAN NEEDED?NO PSYCHOLOGICAL HX TREATMENTNO NEW PATIENT PAIN DIARY TODAY'S VISITNOTES PATIENT DESCRIBES PAIN :BURNING, HAVE IT ALL THE TIME, ACHING, IT COMES AND GOES, SHARP, STABBING, TENDER, THROBBING, SORE, SHOOTING FROM 0-10, WHAT LEVEL IS YOUR PAIN TODAY?8 LEFT LOW BACK AND BUTTOCKS AND LEFT LEG PRECIPITATING FACTORS ANYTHING AND NOTHING ALLEVIATING FACTORS MEDICINE AND HEAT BUT MINIMAL RELIEF IMPACT ON FUNCTION UNABLE TO WORK AND UNABLE TO DO NORMAL ACTIVITIES OF DAILY LIVING WHEN DID YOU LAST EAT? DATE: TIME: WHEN DID YOU LAST DRINK? DATE: TIME: WHAT DID YOU LAST DRINK? MONTHS AGO NAME OF PERSON DRIVING YOU HOME CAB IS THERE A CHANCE YOU COULD BE ?NO HAVE YOU BEEN SICK IN THE LAST WEEK (COLD, COUGH, FEVER, FLU, ETC)NO DO YOU TAKE ANY BLOOD THINNERS?NO LAST DOSE DATE: TIME: DO YOU HAVE ANY RASHES OR OPEN SORES?NO ANY CHANGE IN BOWEL OR BLADDER CONTROL?NO ARE YOU ALLERGIC TO SHELLFISH OR IV DYE?NO ARE YOU DIABETIC?NO DO YOU HAVE A PACEMAKER OR DEFIBRILLATOR?NO ANY NEW PROBLEMS WITH MEDICINES OR NEW ALLERGIESNO ANY NEW PATTERNS OF PAIN OR NUMBNESS?YES INCREASED NUMBNESS TO LEFT FOOT ANY CHANGE IN YOUR MEDICAL CONDITION?NO HAVE YOU FALLEN IN THE LAST 6 MONTHS?NO DO YOU USE ANY TYPE OF TOBACCO (SMOKE, SMOKELESS, CHEW, ETC.)YES ARE YOU ABUSED, NEGLECTED, OR IN AN UNSAFE ENVIRONMENT?NO DO YOU HAVE THOUGHTS OF HURTING YOURSELF OR SOMEONE ELSE?NO DO YOU NEED ANY PRESCRIPTIONS?YES HYDROCODONE DO YOU HAVE ANY OTHER QUESTIONS OR CONCERNS?NO INTENSITY SCALE REVIEWED , NUMBER SCORE0 PAIN CLINIC PFS, CLERGY, PUBLIC HEALTH REFERRALS PFS REFERRAL NEEDED?NO CLERGY REFERRAL NEEDED?NO PUBLIC HEALTH REFERRAL NEEDED?NO WAS THE PROVIDER NOTIFIED OF ANY PERTINENT INFO?NO HAS THE PATIENT BEEN EDUCATED REGARDING HIS/HER PLAN OF CARE?YES HAS THE PATIENT BEEN EDUCATED REGARDING PAIN, THE RISK FOR PAIN, THE IMPORTANCE OF EFFECTIVE PAIN MANAGEMENT, AND THE PAIN ASSESSMENT PROCESS?YES PATIENT: , DENIES USE OF ANY ILLEGAL SUBSTANCE INCLUDING MARIJUANA OR COCAINE, REPORTS BEING EMOTIONALLY STABLE, REPORTS HAVING A SAFE AND ADEQUATE PLACE TO STORE THE MEDICATIONS, IS AWARE THAT THEY ARE RESPONSIBLE AND GUARDIAN OF THE PRESCRIBED MEDICATIONS, DENIES RECREATIONAL DRUG USE. ADVANCE DIRECTIVES HEALTH CARE PROXY?YES NAME OF HCP MADISYN LOONEY CONTACT # FOR HCP [phone] DO YOU HAVE A COPY WITH YOU?NO POWER OF WELL DRILL OPERATOR ROTARY DRILL?NO DO YOU HAVE A DNR?NO WOULD YOU LIKE MORE INFORMATION?NO LIVING WILL?NO WOULD YOU LIKE MORE INFORMATION?NO WOULD YOU LIKE MORE INFORMATION?NO NO TRAVEL OUTSIDE US. REVIEW OF SYSTEMS REVIEWED BY: PROVIDER: TOÑO MUNSON . CONSTITUTIONAL: ANY CHANGE IN YOUR MEDICAL CONDITION? NO . CHILLS NO . FEVER NO . INFECTION: DO YOU HAVE NEW INFECTIONS? NO . DO YOU HAVE HISTORY OF MRSA? NO . MUSCULOSKELETAL: ANY NEW PATTERNS OF PAIN OR NUMBNESS? YES, NEW PAIN IN RIGHT KNEE THAT STARTED 3 DAYS AGO WITHOUT INJURY . GASTROENTEROLOGY: ANY NEW CHANGE IN BOWEL CONTROL? NO . GENITOURINARY: ANY NEW CHANGE IN BLADDER CONTROL? NO . IS THERE A CHANCE YOU COULD BE ? NO . HEMATOLOGY/LYMPH: DO YOU TAKE ANY BLOOD THINNERS? (FOR EXAMPLE- COUMADIN, PLAVIX, AGGRENOX, PLATEL, PRADAXA, OR XARELTO) NO . WHEN WAS YOUR LAST DOSE? DATE: TIME: . NEUROLOGY: HAVE YOU FALLEN IN THE PAST 6 MONTHS? NO . ANY NEW EXTREMITY NUMBNESS OR WEAKNESS? NO . CARDIOLOGY: DO YOU HAVE A PACEMAKER OR DEFIBRILLATOR? NO . RESPIRATORY: HAVE YOU BEEN SICK IN THE PAST WEEK? NO . FEVER NO . FLU LIKE SYMPTOMS? NO . COUGH NO . INTEGUMENTARY: DO YOU HAVE ANY RASHES OR OPEN SORES? YES, DRY SPOTS ON SHOULDERS, RIGHT WORSE THAN LEFT . ALLERGIC/IMMUNO: ARE YOU ALLERGIC TO SHELLFISH OR IV DYE? NO . ANY NEW ALLERGIES? NO . PSYCHIATRIC: DO YOU HAVE THOUGHTS OF HURTING YOURSELF OR SOMEONE ELSE? NO . ARE YOU ABUSED, NEGLECTED, OR IN AN UNSAFE ENVIRONMENT? NO . ENDOCRINOLOGY: ARE YOU DIABETIC? NO . OTHER: DO YOU NEED ANY PRESCRIPTIONS? YES . IF YES, PLEASE LIST: ____ . ANY NEW PROBLEMS WITH YOUR MEDICATIONS? NO . WHEN DID YOU LAST EAT? ____ . WHEN DID YOU LAST DRINK? ____ . WHAT DID YOU LAST DRINK? ____ . NAME OF PERSON DRIVING YOU HOME? ____ . DO YOU HAVE ANY OTHER QUESTIONS OR CONCERNS NO . VITAL SIGNS WT 162.2 LBS, HT 64 IN, BMI 27.84 INDEX, BP 145/83 MM HG, HR 84 /MIN, RR 16 /MIN, TEMP 98.8 F, OXYGEN SAT % 98%, NA INITIALS SC 14:36, REVIEWED BY: MIMA. EXAMINATION GENERAL EXAMINATION: PSYCHALERT , ORIENTED X 3 . LUNGS:CLEAR TO AUSCULTATION BILATERALLY. HEART:HEART RATE REGULAR. MUSCULOSKELETAL:TENDER TOPALPATION OVER RIGHT TRAPEZIUS AND RIGHT SCAPULA.TRIGGER POINTS AND TIGHT FIBEROUS BANDS IDENTIFIED IN THIS AREA. MUSCLE STRENGTH TESTING 4+/5 LEFT LOWER EXTREMITIY, 5/5 ON RIGHT MEDICAL DIRECTOR/HEAD TEAM PHYSICIAN STRENGTH EQUAL AND STRONG.. SLOW TO RISE TO STANDING POSIITION. POSTURE UPRIGHT.. GAIT SLOW, ANTALGIC. 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 CLINICAL NOTES: ISTOP REGISTRY REVIEWED AND DEMNOSTRATES COMPLLIANCE. BRINGS IN MEDICATIONS WHICH IS APPROPRIATE FOR WHAT WAS DISPENSED. PROCEDURE CODES FA211 ESTABILISHED PATIENT [facility] CHARGE DISPOSITION & COMMUNICATION FOLLOW UP REASON: SHERYL - NEED EMG COMPLETED AT DR QURESHI. ELECTRONICALLY SIGNED BY TRINIDAD WORTHINGTON ON 01/01/2017 AT 08:46 AM EDT DISCLAIMER : THIS IS A VISIT SUMMARY EXTRACTED FROM THE [employer] CHART. IT IS NOT A COPY OF THE [employer] PROGRESS NOTE. MTDD
== END ==
LOC: M PAIN 14:40
PROVIDERS: ATTEND Nurse Practitioner Family
DX: M79.1 Myalgia (principal); M51.16 Intervertebral disc disorders with radiculopathy, lumbar region; M96.1 Postlaminectomy syndrome, not elsewhere classified; E03.9 Hypothyroidism, unspecified; Z79.899 Other long term (current) drug therapy; Z87.891 Personal history of nicotine dependence; Z88.0 Allergy status to penicillin; Z88.2 Allergy status to sulfonamides

== ENCOUNTER → 2017-01-09 | Outpatient (CLI) | payer OTHER ==
[~2017-01-09] MED LIST changes: +BUPIVACAINE HCL 0.25% 10 ML VIAL As Ordered ONE; +BUPIVACAINE HCL 0.25% 30 ML VIAL As Ordered ONE; +TRIAMCINOLONE ACETONIDE SUSP 40 MG/ML VIAL (J3301) As Ordered ONE; +diazePAM 5 MG TAB As Ordered ONE; +oxyCODONE 5MG TAB As Ordered ONE
--- NOTE | 2017-01-10 01:12 | ECWPNPC ---
PATIENT NAME: NARENDRA REYNAGA : 1985 GENDER: FEMALE VISIT DATE: 01/09/2017 DISCHARGE DATE: 01/09/17 1734 VISIT LOCKED DATE TIME: PHYSICIAN: MICHAEL WAN RESOURCE: MICHAEL WAN REASON FOR APPOINTMENT 1. TPI- NECK/SHOULDERS HISTORY OF PRESENT ILLNESS HISTORY OF PRESENT ILLNESS: PAIN THE PATIENT DESCRIBES THE PAIN... FALL RISK SCREENING: SCREENING :NO FALLS IN THE PAST YEAR CURRENT MEDICATIONS TAKING PERCOCET 5-325 MG TABLET 1 TABLET NEEDED ORALLY EVERY 6 HRS PRN PAIN MDD=3 75 TABS FOR 30 DAY SUPPLY, NOTES: 1100 01/09/17 TAKING VENTOLIN HFA 90 MCG/ACT AEROSOL SOLUTION 1-2 PUFFS NEEDED INHALATION EVERY 4 HRS, NOTES: AWHILE TAKING LEVOTHYROXINE SODIUM 125 MCG TABLET 1 TABLET ON AN EMPTY STOMACH IN THE MORNING ORALLY ONCE A DAY, NOTES: 92901/09/17 TAKING VITAMIN D (ERGOCALCIFEROL) 96130 UNIT CAPSULE 1 CAPSULE ORALLY WEEKLY / SUNDAY, NOTES: LAST ON SUNDAY TAKING CYMBALTA 30 MG CAPSULE DELAYED RELEASE PARTICLES 1 CAPSULE ORALLY DAILY, NOTES: 92901/09/17 MEDICATION LIST REVIEWED AND RECONCILED WITH THE PATIENT PAST MEDICAL HISTORY BACK AND LEFT LEG PAIN, CHRONIC ASTHMA HYPOTHYROID THORACIC BACK PAIN RIGHT GROIN PAIN HEART PALPITATION ALLERGIES PENICILLIN (FOR ALLERGIES USE ONLY): ANAPHYLAXIS: ALLERGY SULFA (FOR ALLERGY USE ONLY): ANAPHYLAXIS: ALLERGY REVIEW OF SYSTEMS REVIEWED BY: PROVIDER: . CONSTITUTIONAL: ANY CHANGE IN YOUR MEDICAL CONDITION? NO . CHILLS NO . FEVER NO . INFECTION: DO YOU HAVE NEW INFECTIONS? NO . DO YOU HAVE HISTORY OF MRSA? NO . MUSCULOSKELETAL: ANY NEW PATTERNS OF PAIN OR NUMBNESS? NO . GASTROENTEROLOGY: ANY NEW CHANGE IN BOWEL CONTROL? YES, CONSTIPATION . GENITOURINARY: ANY NEW CHANGE IN BLADDER CONTROL? NO . IS THERE A CHANCE YOU COULD BE ? NO . HEMATOLOGY/LYMPH: DO YOU TAKE ANY BLOOD THINNERS? (FOR EXAMPLE- COUMADIN, PLAVIX, AGGRENOX, PLATEL, PRADAXA, OR XARELTO) NO . WHEN WAS YOUR LAST DOSE? DATE: TIME: . NEUROLOGY: HAVE YOU FALLEN IN THE PAST 6 MONTHS? YES . ANY NEW EXTREMITY NUMBNESS OR WEAKNESS? NO . CARDIOLOGY: DO YOU HAVE A PACEMAKER OR DEFIBRILLATOR? NO . RESPIRATORY: HAVE YOU BEEN SICK IN THE PAST WEEK? NO . FEVER NO . FLU LIKE SYMPTOMS? NO . COUGH NO . INTEGUMENTARY: DO YOU HAVE ANY RASHES OR OPEN SORES? NO . ALLERGIC/IMMUNO: ARE YOU ALLERGIC TO SHELLFISH OR IV DYE? NO . ANY NEW ALLERGIES? NO . PSYCHIATRIC: DO YOU HAVE THOUGHTS OF HURTING YOURSELF OR SOMEONE ELSE? NO . ARE YOU ABUSED, NEGLECTED, OR IN AN UNSAFE ENVIRONMENT? NO . ENDOCRINOLOGY: ARE YOU DIABETIC? NO . OTHER: DO YOU NEED ANY PRESCRIPTIONS? NO . IF YES, PLEASE LIST: ____ . ANY NEW PROBLEMS WITH YOUR MEDICATIONS? NO . WHEN DID YOU LAST EAT? ____ . WHEN DID YOU LAST DRINK? ____ . WHAT DID YOU LAST DRINK? ____ . NAME OF PERSON DRIVING YOU HOME? ____ . DO YOU HAVE ANY OTHER QUESTIONS OR CONCERNS NO . VITAL SIGNS WT 165.8 LBS, HT 64 IN, BMI 28.46 INDEX, BP 100/77 MM HG, HR 71 /MIN, TEMP 97.5 F, OXYGEN SAT % 97%, NA INITIALS SC 15:41, REVIEWED BY: NL. ASSESSMENTS MYALGIA - M79.1 (PRIMARY) PROCEDURES PN TRIGGER POINT INJECTION WITH STEROIDS PRE PROCEDURE DIAGNOSIS 1. MYALGIA 2. PAIN AT RIGHT SHOULDER AND BILATERAL THORACIC AREA POST PROCEDURE DIAGNOSIS 1. MYALGIA 2. PAIN AT RIGHT SHOULDER AND BILATERAL THORACIC AREA PROCEDURE TRIGGER POINT INJECTION AT RIGHT SHOULDER AND BILATERAL THORACIC AREA SURGEON DR. MICHAEL WAN FAMILY LITERACY COORDINATOR NONE ANESTHESIA LOCAL PRE PROCEDURE NOTE THE PATIENT HAS A HISTORY OF CHRONIC PAIN AT THE RIGHT SHOULDER AND RIGHT AND LEFT THORACIC AREA. I EVALUATE THE PATIENT AND REVIEWED THE CHART. THERE IS EVIDENCE OF BANDS OF TISSUE WITH RESTRICTION OF MOVEMENT AND PRESENCE OF TRIGGER POINT AT THE AFFECTED AREA. I WENT OVER THE RISKS, ALTERNATIVES, AND BENEFITS ASSOCIATED WITH THIS PROCEDURE. THE PATIENT WOULD LIKE TO PROCEED AND GIVE CONSENT TO PERFORMED THE PROCEDURE. THE PATIENT DENIES UNEXPLAINABLE WEIGHT LOSS, FEVER, CHILLS, OR NEW CHANGES IN URINARY OR BOWEL CONTROL DESCRIPTION OF PROCEDURE THE PATIENT WAS BROUGHT TO THE PROCEDURE ROOM AND PLACED IN THE SITTING POSITION. THE AREA WAS CLEANED WITH ALCOHOL. THE PROCEDURE WAS DONE USING ASEPTIC STERILE TECHNIQUE. I CHECKED LATERALITY AND THE LEVEL WHERE THE PROCEDURE WAS GOING TO BE PERFORMED WITH THE PATIENT AND THE SUPPORTING STAFF AT THE MOMENT OF THE TIME OUT IN THE PROCEDURE ROOM. USING A 25-GAUGE NEEDLE, TRIGGER POINTS WERE INJECTED AT THE RIGHT SHOULDER AND RIGHT AND LEFT THORACIC AREA WITH A TOTAL OF 40 ML OF BUPIVACAINE 0.25% AND KENALOG 40 MG. THERE WAS NO EVIDENCE OF BLOOD, PARESTHESIA OR CEREBROSPINAL FLUID DURING THE PROCEDURE. THE PATIENT WAS SENT TO THE RECOVERY ROOM. THE PATIENT WAS MOVING THE EXTREMITIES AND DOING WELL. THERE WAS NO COMPLICATION DURING THE PROCEDURE POST PROCEDURE NOTE THE PATIENT WILL BE SEEN IN A FOLLOW UP IN THE NEXT FEW WEEKS. INSTRUCTIONS WERE GIVEN, QUESTIONS WERE ANSWERED, AND THE PATIENT EXPRESSED UNDERSTANDING AND AGREES WITH THE PLAN. I, SHAWNA BOLANOS, DOCUMENTED THE ABOVE INFORMATION ACTING A SCRIBE FOR DR. WAN. I HAVE REVIEWED THE ABOVE DOCUMENT, WRITTEN BY SHAWNA LOPES AND I VERIFY THAT IT IS ACCURATE PROCEDURE CODES 33682 INJECT TRIGGER POINTS 3/> DISPOSITION & COMMUNICATION FOLLOW UP 3 WEEKS ELECTRONICALLY SIGNED BY MICHAEL WAN MD ON 01/09/2017 AT 07:03 PM EDT DISCLAIMER : THIS IS A VISIT SUMMARY EXTRACTED FROM THE [employer] CHART. IT IS NOT A COPY OF THE [employer] PROGRESS NOTE. NICKI
== END ==
LOC: M PAIN 15:30
PROVIDERS: ATTEND Anesthesiology
DX: G89.29 Other chronic pain (principal); M79.1 Myalgia; E03.9 Hypothyroidism, unspecified; J45.20 Mild intermittent asthma, uncomplicated; M54.16 Radiculopathy, lumbar region; M96.1 Postlaminectomy syndrome, not elsewhere classified; Z79.891 Long term (current) use of opiate analgesic; Z79.899 Other long term (current) drug therapy; Z88.0 Allergy status to penicillin; Z88.2 Allergy status to sulfonamides
CPT/HCPCS: 20553; J3301

== ENCOUNTER → 2017-02-14 | Outpatient (REF) | payer OTHER ==
[~2017-02-14] MED LIST changes: -BUPIVACAINE HCL 0.25% 10 ML VIAL As Ordered ONE; -BUPIVACAINE HCL 0.25% 30 ML VIAL As Ordered ONE; -TRIAMCINOLONE ACETONIDE SUSP 40 MG/ML VIAL (J3301) As Ordered ONE; -diazePAM 5 MG TAB As Ordered ONE; -oxyCODONE 5MG TAB As Ordered ONE
[2017-02-14 16:20] LABS: FREE T4 1.12 NG/DL (0.76-1.46)
== END ==
LOC: M SFHCPLAZ 09:19
PROVIDERS: ATTEND Physician Assistant Medical
DX: E03.9 Hypothyroidism, unspecified (principal)

== ENCOUNTER → 2017-02-15 | Outpatient (CLI) | payer OTHER ==
[2017-02-15 14:49] LABS: CONTROL LINE MONO INT CTR LINE PRESENT
[2017-02-15 14:57] LABS: ALBUMIN 4.3 GM/DL (3.2-5.2); ALBUMIN/GLOBULIN RATIO 1.19 (1.00-1.93); ALKALINE PHOSPHATASE 58 U/L (45-117); ALT/SGPT 34 U/L (12-78); ANION GAP 7 MEQ/L (8-16); AST/SGOT 22 U/L (15-37); BILIRUBIN,TOTAL 0.5 MG/DL (0.2-1.0); BLOOD UREA NITROGEN 12 MG/DL (7-18); CALCIUM LEVEL 9.6 MG/DL (8.5-10.1); CARBON DIOXIDE LEVEL 26 MEQ/L (21-32); CHLORIDE LEVEL 105 MEQ/L (98-107); CREATININE FOR GFR 0.76 MG/DL (0.55-1.02); GLOMERULAR FILTRATION RATE > 60.0 (>60); GLUCOSE, FASTING 92 MG/DL (70-105); POTASSIUM SERUM 4.5 MEQ/L (3.5-5.1); SODIUM LEVEL 138 MEQ/L (136-145); TOTAL PROTEIN 7.9 GM/DL (6.4-8.2)
== END ==
LOC: M LAB 12:41
PROVIDERS: ATTEND Nurse Practitioner Family
DX: M51.16 Intervertebral disc disorders with radiculopathy, lumbar region (principal)

== ENCOUNTER → 2017-02-15 | Outpatient (CLI) | payer OTHER | LOC: M PAIN 11:15 | PROVIDERS: ATTEND Nurse Practitioner Family | DX: M51.16 Intervertebral disc disorders with radiculopathy, lumbar region (principal); M79.7 Fibromyalgia; G89.29 Other chronic pain; E03.9 Hypothyroidism, unspecified; J45.909 Unspecified asthma, uncomplicated; Z79.899 Other long term (current) drug therapy; Z87.891 Personal history of nicotine dependence; Z88.0 Allergy status to penicillin; Z88.2 Allergy status to sulfonamides ==

== ENCOUNTER → 2017-03-01 | Outpatient (CLI) | payer OTHER ==
[2017-03-01 13:29] LABS: BASO # 0.1 10^3/uL (0.0-0.2); BASO % 0.7 % (0.0-1.0); EOS # 0.4 10^3/uL (0.0-0.50); EOS % 4.6 % (0.0-3.0); IMMATURE GRANULOCYTE % 0.3 % (0-0); LYMPH # 3.6 10^3/uL (1.5-4.5); MEAN CORPUSCULAR HEMOGLOBIN 31.9 pg (27.0-33.0); MEAN CORPUSCULAR HGB CONC 33.8 g/dl (32.0-36.5); MEAN CORPUSCULAR VOLUME 94.3 fl (80.0-96.0); MONO # 0.7 10^3/uL (0.0-0.8); MONO % 7.4 % (0.0-5.0); NEUTROPHILS # 4.2 10^3/uL (1.8-7.7); PLATELET COUNT, AUTOMATED 498 10^3/uL (150-450); RED CELL DISTRIBUTION WIDTH 12.5 % (11.5-14.5); WHITE BLOOD COUNT 8.9 10^3/uL (4.0-10.0)
--- NOTE | 2017-03-01 13:43 | REP ---
CHEST, TWO VIEWS: There is no evidence of acute infiltrate. No pleural effusion is seen. The heart is normal in size. The mediastinal silhouette is unremarkable. The visualized osseous structures are intact. IMPRESSION: No acute pulmonary disease. Signed by Alvaro Garcia MD 03/01/2017 02:39 P
[2017-03-01 14:50] LABS: ANION GAP 7 MEQ/L (8-16); BLOOD UREA NITROGEN 7 MG/DL (7-18); CALCIUM LEVEL 9.7 MG/DL (8.5-10.1); CARBON DIOXIDE LEVEL 29 MEQ/L (21-32); CHLORIDE LEVEL 105 MEQ/L (98-107); CREATININE FOR GFR 0.67 MG/DL (0.55-1.02); GLOMERULAR FILTRATION RATE > 60.0 (>60); GLUCOSE, FASTING 81 MG/DL (70-105); POTASSIUM SERUM 4.5 MEQ/L (3.5-5.1); SODIUM LEVEL 141 MEQ/L (136-145)
== END ==
LOC: M LAB 12:31
PROVIDERS: ATTEND Physician Assistant Medical
DX: J01.10 Acute frontal sinusitis, unspecified (principal)

== ENCOUNTER → 2017-03-19 | Outpatient (CLI) | payer OTHER ==
--- NOTE | 2017-04-05 01:33 | ECWPNPC ---
PATIENT NAME: NARENDRA REYNAGA : 1985 GENDER: FEMALE VISIT DATE: 03/19/2017 DISCHARGE DATE: 03/19/17 1224 VISIT LOCKED DATE TIME: PHYSICIAN: TOÑO CORTEZ RESOURCE: TOÑO CORTEZ REASON FOR APPOINTMENT 1. FIBRO/BACK PAIN HISTORY OF PRESENT ILLNESS HISTORY OF PRESENT ILLNESS: PAIN THE PATIENT DESCRIBES THE PAIN... FALL RISK SCREENING: SCREENING :NO FALLS IN THE PAST YEAR TODAY'S VISIT: NOTES: STATES IS HAVING WEAKNESS AND CAN'T GO UP STAIRS. RATES PAIN TODAY 7/10, RIGHT FOOT IS DRAGGING. PAIN IS WORST IN BACKS OF THIGHS AND LOWER LEGS.NO LOSS OF B/B. SEEMS TO EMPTY BLADDER. N/T LEFT LATERAL CALF TO TOES. . CURRENT MEDICATIONS TAKING VITAMIN D (ERGOCALCIFEROL) 76153 UNIT CAPSULE 1 CAPSULE ORALLY WEEKLY / SUNDAY TAKING VENTOLIN HFA 90 MCG/ACT AEROSOL SOLUTION 1-2 PUFFS NEEDED INHALATION EVERY 4 HRS, NOTES: AWHILE TAKING LEVOTHYROXINE SODIUM 100 MCG TABLET 1 TABLET ON AN EMPTY STOMACH IN THE MORNING ORALLY ONCE A DAY TAKING CYMBALTA 60 MG CAPSULE DELAYED RELEASE PARTICLES 1 CAPSULE ORALLY DAILY TAKING PERCOCET 5-325 MG TABLET 1 TABLET NEEDED ORALLY EVERY 6 HRS PRN PAIN MDD=4 PAST MEDICAL HISTORY BACK AND LEFT LEG PAIN, CHRONIC ASTHMA HYPOTHYROID THORACIC BACK PAIN RIGHT GROIN PAIN HEART PALPITATION ALLERGIES PENICILLIN (FOR ALLERGIES USE ONLY): ANAPHYLAXIS: ALLERGY SULFA (FOR ALLERGY USE ONLY): ANAPHYLAXIS: ALLERGY SOCIAL HISTORY GENERAL: TOBACCO USE ARE YOU A:FORMER SMOKER HOW LONG HAS IT BEEN SINCE YOU LAST SMOKED?6-12 MONTHS ADDITIONAL FINDINGS: TOBACCO USERLIGHT CIGARETTE SMOKER ((1-9 CIGS/DAY) ALCOHOL SCREENING HOW OFTEN DID YOU HAVE A DRINK CONTAINING ALCOHOL IN THE PAST YEAR?NEVER (0 POINTS) DID YOU HAVE A DRINK CONTAINING ALCOHOL IN THE PAST YEAR?YES DID YOU HAVE A DRINK CONTAINING ALCOHOL IN THE PAST YEAR?NO POINTS0 POINTS0 POINTS0 INTERPRETATIONNEGATIVE INTERPRETATIONNEGATIVE RECREATIONAL DRUG USE DRUG USE?NO PATIENT DENIES ABUSE OR MISSUSED OF ANY MEDICATION. PATIENT DENIES USE OF ANY ILLEGAL SUBSTANCE INCLUDING MARIJUANA OR COCAINE. CAFFEINE CAFFEINE USE?YES HOW OFTEN AND HOW MUCH? 2 CUPS OF COFFEE DAILY SEXUAL HX HAD SEX IN THE LAST 12 MONTHS (VAGINAL, ORAL, OR ANAL)?NO HAVE YOU EVER HAD AN STD?YES CHLAMYDIA?YES SYPHILIS?NO HERPES?NO HIV / HEP-C SCREENING HIV TEST OFFERED TO PATIENT:YES DATE OFFERED:03/01/2017 TEST ACCEPTED:YES HEP-C TEST OFFERED TO PATIENT:YES DATE OFFERED:03/01/2017 TEST ACCEPTED:YES OCCUPATION: UNEMPLOYED. DIET: REGULAR. EXERCISE: NO REGULAR EXERCISE. MARITAL STATUS: . OTHERS AT HOME: MOTHER, . BAPTISM [id number] NONE NO [employer] BELIEFS THAT WOULD IMPACT HEALTH CARE. LANGUAGE THAI. EDUCATION LEVEL OF EDUCATION:NOT FINISHED COLLEGE LEARNING BARRIERS / SPECIAL NEEDS CHANGE FROM LAST VISIT?NO BARRIERS TO LEARNING?NO HEARING IMPAIRED?NO VISION IMPAIRED?NO COGNITIVELY IMPAIRED?NO READINESS TO LEARN?YES LEARNING PREFERENCES?NO LEARNING CAPABILITIES PRESENT?YES EMOTIONAL BARRIERS?NO SPECIAL DEVICES?YES :CANE ROPE WALKER NEEDED?NO PSYCHOLOGICAL HX TREATMENTNO NEW PATIENT PAIN DIARY TODAY'S VISITNOTES PATIENT DESCRIBES PAIN :BURNING, HAVE IT ALL THE TIME, ACHING, IT COMES AND GOES, SHARP, STABBING, TENDER, THROBBING, SORE, SHOOTING FROM 0-10, WHAT LEVEL IS YOUR PAIN TODAY?8 LEFT LOW BACK AND BUTTOCKS AND LEFT LEG PRECIPITATING FACTORS ANYTHING AND NOTHING ALLEVIATING FACTORS MEDICINE AND HEAT BUT MINIMAL RELIEF IMPACT ON FUNCTION UNABLE TO WORK AND UNABLE TO DO NORMAL ACTIVITIES OF DAILY LIVING WHEN DID YOU LAST EAT? DATE: TIME: WHEN DID YOU LAST DRINK? DATE: TIME: WHAT DID YOU LAST DRINK? MONTHS AGO NAME OF PERSON DRIVING YOU HOME CAB IS THERE A CHANCE YOU COULD BE ?NO HAVE YOU BEEN SICK IN THE LAST WEEK (COLD, COUGH, FEVER, FLU, ETC)NO DO YOU TAKE ANY BLOOD THINNERS?NO LAST DOSE DATE: TIME: DO YOU HAVE ANY RASHES OR OPEN SORES?NO ANY CHANGE IN BOWEL OR BLADDER CONTROL?NO ARE YOU ALLERGIC TO SHELLFISH OR IV DYE?NO ARE YOU DIABETIC?NO DO YOU HAVE A PACEMAKER OR DEFIBRILLATOR?NO ANY NEW PROBLEMS WITH MEDICINES OR NEW ALLERGIESNO ANY NEW PATTERNS OF PAIN OR NUMBNESS?YES INCREASED NUMBNESS TO LEFT FOOT ANY CHANGE IN YOUR MEDICAL CONDITION?NO HAVE YOU FALLEN IN THE LAST 6 MONTHS?NO DO YOU USE ANY TYPE OF TOBACCO (SMOKE, SMOKELESS, CHEW, ETC.)YES ARE YOU ABUSED, NEGLECTED, OR IN AN UNSAFE ENVIRONMENT?NO DO YOU HAVE THOUGHTS OF HURTING YOURSELF OR SOMEONE ELSE?NO DO YOU NEED ANY PRESCRIPTIONS?YES HYDROCODONE DO YOU HAVE ANY OTHER QUESTIONS OR CONCERNS?NO INTENSITY SCALE REVIEWED , NUMBER SCORE0 PAIN CLINIC PFS, CLERGY, PUBLIC HEALTH REFERRALS PFS REFERRAL NEEDED?NO CLERGY REFERRAL NEEDED?NO PUBLIC HEALTH REFERRAL NEEDED?NO WAS THE PROVIDER NOTIFIED OF ANY PERTINENT INFO?NO HAS THE PATIENT BEEN EDUCATED REGARDING HIS/HER PLAN OF CARE?YES HAS THE PATIENT BEEN EDUCATED REGARDING PAIN, THE RISK FOR PAIN, THE IMPORTANCE OF EFFECTIVE PAIN MANAGEMENT, AND THE PAIN ASSESSMENT PROCESS?YES PATIENT: , DENIES USE OF ANY ILLEGAL SUBSTANCE INCLUDING MARIJUANA OR COCAINE, REPORTS BEING EMOTIONALLY STABLE, REPORTS HAVING A SAFE AND ADEQUATE PLACE TO STORE THE MEDICATIONS, IS AWARE THAT THEY ARE RESPONSIBLE AND GUARDIAN OF THE PRESCRIBED MEDICATIONS, DENIES RECREATIONAL DRUG USE. ADVANCE DIRECTIVES HEALTH CARE PROXY?YES NAME OF HCP MADISYN LOONEY CONTACT # FOR HCP [phone] DO YOU HAVE A COPY WITH YOU?NO DO YOU HAVE A DNR?NO WOULD YOU LIKE MORE INFORMATION?NO LIVING WILL?NO WOULD YOU LIKE MORE INFORMATION?NO POWER OF CLINICAL ADMINISTRATIVE COORDINATOR?NO WOULD YOU LIKE MORE INFORMATION?NO NO TRAVEL OUTSIDE US. DOMESTIC VIOLENCE DO YOU FEEL SAFE IN YOUR ENVIRONMENT?YES REVIEW OF SYSTEMS REVIEWED BY: PROVIDER: . CONSTITUTIONAL: ANY CHANGE IN YOUR MEDICAL CONDITION? RIGHT FOOT DRAGGING WHEN WALKING YESTERDAY . CHILLS NO . FEVER NO . INFECTION: DO YOU HAVE NEW INFECTIONS? NO . DO YOU HAVE HISTORY OF MRSA? NO . MUSCULOSKELETAL: ANY NEW PATTERNS OF PAIN OR NUMBNESS? NO . GASTROENTEROLOGY: ANY NEW CHANGE IN BOWEL CONTROL? NO . GENITOURINARY: ANY NEW CHANGE IN BLADDER CONTROL? NO . IS THERE A CHANCE YOU COULD BE ? NO . HEMATOLOGY/LYMPH: DO YOU TAKE ANY BLOOD THINNERS? (FOR EXAMPLE- COUMADIN, PLAVIX, AGGRENOX, PLATEL, PRADAXA, OR XARELTO) NO . WHEN WAS YOUR LAST DOSE? DATE: TIME: . NEUROLOGY: HAVE YOU FALLEN IN THE PAST 6 MONTHS? YES, SEPTEMBER OR OCTOBER/ NONINJURY . ANY NEW EXTREMITY NUMBNESS OR WEAKNESS? NO . CARDIOLOGY: DO YOU HAVE A PACEMAKER OR DEFIBRILLATOR? NO . RESPIRATORY: HAVE YOU BEEN SICK IN THE PAST WEEK? NO . FEVER NO . FLU LIKE SYMPTOMS? NO . COUGH NO . INTEGUMENTARY: DO YOU HAVE ANY RASHES OR OPEN SORES? NO . ALLERGIC/IMMUNO: ARE YOU ALLERGIC TO SHELLFISH OR IV DYE? NO . ANY NEW ALLERGIES? NO . PSYCHIATRIC: DO YOU HAVE THOUGHTS OF HURTING YOURSELF OR SOMEONE ELSE? NO . ARE YOU ABUSED, NEGLECTED, OR IN AN UNSAFE ENVIRONMENT? NO . ENDOCRINOLOGY: ARE YOU DIABETIC? NO . OTHER: DO YOU NEED ANY PRESCRIPTIONS? NO . IF YES, PLEASE LIST: ____ . ANY NEW PROBLEMS WITH YOUR MEDICATIONS? NO . WHEN DID YOU LAST EAT? ____ . WHEN DID YOU LAST DRINK? ____ . WHAT DID YOU LAST DRINK? ____ . NAME OF PERSON DRIVING YOU HOME? ____ . DO YOU HAVE ANY OTHER QUESTIONS OR CONCERNS NO . VITAL SIGNS WT 159.8 LBS, HT 64 IN, BMI 27.43 INDEX, BP 112/64 MM HG, HR 95 /MIN, RR 18 /MIN, TEMP 96.3 F, OXYGEN SAT % 96%, NA INITIALS SC 11:07, REVIEWED BY: NL. ASSESSMENTS LUMBAR DISC DISEASE WITH RADICULOPATHY - M51.16 (PRIMARY) FIBROMYALGIA - M79.7 OTHER CHRONIC PAIN - G89.29 PAIN, UNSPECIFIED - R52 CERVICALGIA - M54.2 TREATMENT LUMBAR DISC DISEASE WITH RADICULOPATHY CAUDAL/LUMBAR EPIDURAL NOTES: PHYSICAL THERAPY TO UPPER BACK,LUMBAR EPIDURAL INJECTION: YOUR PROCEDURE MATERIAL WAS PRINTEDNEEDS FUNCTIONAL CAPACITY STUDY THROUGH PHYSCIAL THERAPY. PREVENTIVE MEDICINE REVIEWED PRE PROCEDURE CARE AND EPIDURAL INJECTION / PT EXPRESSED UNDERSTANDING OF ALL. PROCEDURE CODES FA211 ESTABILISHED PATIENT [facility] CHARGE DISPOSITION & COMMUNICATION FOLLOW UP AFTER INJECTION (REASON: CHECK AUTH FOR LESB/CAUDAL AND PT NECK/MID THORACIC) ELECTRONICALLY SIGNED BY TRINIDAD WORTHINGTON ON 04/03/2017 AT 08:46 AM EST DISCLAIMER : THIS IS A VISIT SUMMARY EXTRACTED FROM THE [employer] CHART. IT IS NOT A COPY OF THE [employer] PROGRESS NOTE. NICKI
== END ==
LOC: M PAIN 11:00
PROVIDERS: ATTEND Nurse Practitioner Family
DX: G89.29 Other chronic pain (principal); M51.16 Intervertebral disc disorders with radiculopathy, lumbar region; M79.7 Fibromyalgia; M54.2 Cervicalgia; J45.909 Unspecified asthma, uncomplicated; E03.9 Hypothyroidism, unspecified; Z87.891 Personal history of nicotine dependence; Z88.0 Allergy status to penicillin; Z88.2 Allergy status to sulfonamides; Z79.899 Other long term (current) drug therapy

== ENCOUNTER → 2017-03-27 | Outpatient (CLI) | payer OTHER ==
[~2017-03-27] MED LIST changes: +ISOVUE-M 300 61% 15ML VIAL (Q9967) As Ordered ONE; +LIDOCAINE 1% SDV INJ 30 ML VIAL As Ordered ONE; +diazePAM 5 MG TAB As Ordered ONE; +methylPREDNISolone SUSP 40 MG/ML (DEPO-medrol) VIAL (J1030) As Ordered ONE; +oxyCODONE 5MG TAB As Ordered ONE
--- NOTE | 2017-03-27 13:15 | REP ---
Partial lumbar spine series: Three views . History: Injection procedure for pain. Five seconds of fluoroscopy time is reported. Findings: A sequence of three fluoroscopically obtained last image hold procedural spot radiographs of the lumbar spine document needle position and contrast injection associated with injection procedure. Signed by Geovani Lopes MD 03/27/2017 01:06 P
--- NOTE | 2017-04-03 00:24 | ECWPNPC ---
PATIENT NAME: NARENDRA REYNAGA : 1985 GENDER: FEMALE VISIT DATE: 03/27/2017 DISCHARGE DATE: 03/27/17 1318 VISIT LOCKED DATE TIME: PHYSICIAN: MICHAEL WAN RESOURCE: MICHAEL WAN REASON FOR APPOINTMENT 1. LESB/CAUDAL HISTORY OF PRESENT ILLNESS FALL RISK SCREENING: SCREENING :NO FALLS IN THE PAST YEAR PAIN SCREENING: PATIENT HAS A COMPLAINT OF ACUTE OR CHRONIC PAIN :YES CURRENT MEDICATIONS TAKING VITAMIN D (ERGOCALCIFEROL) 70313 UNIT CAPSULE 1 CAPSULE ORALLY WEEKLY / SUNDAY, NOTES: 03/25 9AM TAKING VENTOLIN HFA 90 MCG/ACT AEROSOL SOLUTION 1-2 PUFFS NEEDED INHALATION EVERY 4 HRS, NOTES: 1 WEEK AGO TAKING LEVOTHYROXINE SODIUM 100 MCG TABLET 1 TABLET ON AN EMPTY STOMACH IN THE MORNING ORALLY ONCE A DAY, NOTES: 03/27 6:30AM TAKING CYMBALTA 60 MG CAPSULE DELAYED RELEASE PARTICLES 1 CAPSULE ORALLY DAILY, NOTES: 03/27 7AM TAKING PERCOCET 5-325 MG TABLET 1 TABLET NEEDED ORALLY EVERY 6 HRS PRN PAIN MDD=4, NOTES: 03/27 7AM MEDICATION LIST REVIEWED AND RECONCILED WITH THE PATIENT PAST MEDICAL HISTORY BACK AND LEFT LEG PAIN, CHRONIC ASTHMA HYPOTHYROID THORACIC BACK PAIN RIGHT GROIN PAIN HEART PALPITATION ALLERGIES PENICILLIN (FOR ALLERGIES USE ONLY): ANAPHYLAXIS: ALLERGY SULFA (FOR ALLERGY USE ONLY): ANAPHYLAXIS: ALLERGY LATEX (FOR ALLERGY USE ONLY): RASH: ALLERGY SURGICAL HISTORY SPINE SURGERY LUMBAR L4-L5 08/10/15 HAND SURGERY RIGHT.TENDON--TRIGGER FINGER RELEASE LAMINECTOMY L3-4,L4-5 05/18/16 SOCIAL HISTORY GENERAL: TOBACCO USE ARE YOU A:FORMER SMOKER HOW LONG HAS IT BEEN SINCE YOU LAST SMOKED?6-12 MONTHS ADDITIONAL FINDINGS: TOBACCO USERLIGHT CIGARETTE SMOKER ((1-9 CIGS/DAY) ALCOHOL SCREENING HOW OFTEN DID YOU HAVE A DRINK CONTAINING ALCOHOL IN THE PAST YEAR?NEVER (0 POINTS) DID YOU HAVE A DRINK CONTAINING ALCOHOL IN THE PAST YEAR?YES DID YOU HAVE A DRINK CONTAINING ALCOHOL IN THE PAST YEAR?NO POINTS0 POINTS0 POINTS0 INTERPRETATIONNEGATIVE INTERPRETATIONNEGATIVE RECREATIONAL DRUG USE DRUG USE?NO PATIENT DENIES ABUSE OR MISSUSED OF ANY MEDICATION. PATIENT DENIES USE OF ANY ILLEGAL SUBSTANCE INCLUDING MARIJUANA OR COCAINE. CAFFEINE CAFFEINE USE?YES HOW OFTEN AND HOW MUCH? 2 CUPS OF COFFEE DAILY SEXUAL HX HAD SEX IN THE LAST 12 MONTHS (VAGINAL, ORAL, OR ANAL)?NO HAVE YOU EVER HAD AN STD?YES CHLAMYDIA?YES SYPHILIS?NO HERPES?NO HIV / HEP-C SCREENING HIV TEST OFFERED TO PATIENT:YES DATE OFFERED:03/01/2017 TEST ACCEPTED:YES HEP-C TEST OFFERED TO PATIENT:YES DATE OFFERED:03/01/2017 TEST ACCEPTED:YES OCCUPATION: UNEMPLOYED. DIET: REGULAR. EXERCISE: NO REGULAR EXERCISE. MARITAL STATUS: . OTHERS AT HOME: MOTHER, . BUDDHIST [id number] NONE NO PENTECOSTAL BELIEFS THAT WOULD IMPACT HEALTH CARE. LANGUAGE GUYANESE. EDUCATION LEVEL OF EDUCATION:NOT FINISHED COLLEGE LEARNING BARRIERS / SPECIAL NEEDS CHANGE FROM LAST VISIT?NO BARRIERS TO LEARNING?NO HEARING IMPAIRED?NO VISION IMPAIRED?NO COGNITIVELY IMPAIRED?NO READINESS TO LEARN?YES LEARNING PREFERENCES?NO LEARNING CAPABILITIES PRESENT?YES EMOTIONAL BARRIERS?NO SPECIAL DEVICES?YES :CANE RADIATION CONTROL TECHNICIAN NEEDED?NO PSYCHOLOGICAL HX TREATMENTNO NEW PATIENT PAIN DIARY TODAY'S VISITNOTES PATIENT DESCRIBES PAIN :BURNING, HAVE IT ALL THE TIME, ACHING, IT COMES AND GOES, SHARP, STABBING, TENDER, THROBBING, SORE, SHOOTING FROM 0-10, WHAT LEVEL IS YOUR PAIN TODAY?8 LEFT LOW BACK AND BUTTOCKS AND LEFT LEG PRECIPITATING FACTORS ANYTHING AND NOTHING ALLEVIATING FACTORS MEDICINE AND HEAT BUT MINIMAL RELIEF IMPACT ON FUNCTION UNABLE TO WORK AND UNABLE TO DO NORMAL ACTIVITIES OF DAILY LIVING WHEN DID YOU LAST EAT? DATE: TIME: WHEN DID YOU LAST DRINK? DATE: TIME: WHAT DID YOU LAST DRINK? MONTHS AGO NAME OF PERSON DRIVING YOU HOME CAB IS THERE A CHANCE YOU COULD BE ?NO HAVE YOU BEEN SICK IN THE LAST WEEK (COLD, COUGH, FEVER, FLU, ETC)NO DO YOU TAKE ANY BLOOD THINNERS?NO LAST DOSE DATE: TIME: DO YOU HAVE ANY RASHES OR OPEN SORES?NO ANY CHANGE IN BOWEL OR BLADDER CONTROL?NO ARE YOU ALLERGIC TO SHELLFISH OR IV DYE?NO ARE YOU DIABETIC?NO DO YOU HAVE A PACEMAKER OR DEFIBRILLATOR?NO ANY NEW PROBLEMS WITH MEDICINES OR NEW ALLERGIESNO ANY NEW PATTERNS OF PAIN OR NUMBNESS?YES INCREASED NUMBNESS TO LEFT FOOT ANY CHANGE IN YOUR MEDICAL CONDITION?NO HAVE YOU FALLEN IN THE LAST 6 MONTHS?NO DO YOU USE ANY TYPE OF TOBACCO (SMOKE, SMOKELESS, CHEW, ETC.)YES ARE YOU ABUSED, NEGLECTED, OR IN AN UNSAFE ENVIRONMENT?NO DO YOU HAVE THOUGHTS OF HURTING YOURSELF OR SOMEONE ELSE?NO DO YOU NEED ANY PRESCRIPTIONS?YES HYDROCODONE DO YOU HAVE ANY OTHER QUESTIONS OR CONCERNS?NO INTENSITY SCALE REVIEWED , NUMBER SCORE0 PAIN CLINIC PFS, CLERGY, PUBLIC HEALTH REFERRALS PFS REFERRAL NEEDED?NO CLERGY REFERRAL NEEDED?NO PUBLIC HEALTH REFERRAL NEEDED?NO WAS THE PROVIDER NOTIFIED OF ANY PERTINENT INFO?YES HAS THE PATIENT BEEN EDUCATED REGARDING HIS/HER PLAN OF CARE?YES PLEASE DOCUMENT ANY ADDTIONAL DETAILS. LUMBAR/CAUDAL EPIDURAL HAS THE PATIENT BEEN EDUCATED REGARDING PAIN, THE RISK FOR PAIN, THE IMPORTANCE OF EFFECTIVE PAIN MANAGEMENT, AND THE PAIN ASSESSMENT PROCESS?YES REVIEWED BY: YVON. PATIENT: , DENIES USE OF ANY ILLEGAL SUBSTANCE INCLUDING MARIJUANA OR COCAINE, REPORTS BEING EMOTIONALLY STABLE, REPORTS HAVING A SAFE AND ADEQUATE PLACE TO STORE THE MEDICATIONS, IS AWARE THAT THEY ARE RESPONSIBLE AND GUARDIAN OF THE PRESCRIBED MEDICATIONS, DENIES RECREATIONAL DRUG USE. ADVANCE DIRECTIVES HEALTH CARE PROXY?YES NAME OF HCP MADISYN LOONEY CONTACT # FOR HCP [phone] DO YOU HAVE A COPY WITH YOU?NO DO YOU HAVE A DNR?NO WOULD YOU LIKE MORE INFORMATION?NO LIVING WILL?NO WOULD YOU LIKE MORE INFORMATION?NO POWER OF RETAIL PHARMACIST?NO WOULD YOU LIKE MORE INFORMATION?NO NO TRAVEL OUTSIDE US. DOMESTIC VIOLENCE DO YOU FEEL SAFE IN YOUR ENVIRONMENT?YES HOSPITALIZATION/MAJOR DIAGNOSTIC PROCEDURE BACK AND LEG PAIN 2016 BACK SURGERIES REVIEW OF SYSTEMS REVIEWED BY: PROVIDER: . CONSTITUTIONAL: ANY CHANGE IN YOUR MEDICAL CONDITION? NO . CHILLS NO . FEVER NO . INFECTION: DO YOU HAVE NEW INFECTIONS? NO . DO YOU HAVE HISTORY OF MRSA? NO . MUSCULOSKELETAL: ANY NEW PATTERNS OF PAIN OR NUMBNESS? FEET, TOES . SYTEMIC LUPUS NO . GASTROENTEROLOGY: ANY NEW CHANGE IN BOWEL CONTROL? NO . BARRETTS ESOPHAGUS NO . CIRRHOSIS NO . HEPATITIS NO . LIVER FAILURE NO . ACID REFLUX NO . UNEXPLAINED WEIGHT LOSS NO . GENITOURINARY: ANY NEW CHANGE IN BLADDER CONTROL? NO . IS THERE A CHANCE YOU COULD BE ? NO . HEMATOLOGY/LYMPH: DO YOU TAKE ANY BLOOD THINNERS? (FOR EXAMPLE- COUMADIN, PLAVIX, AGGRENOX, PLATEL, PRADAXA, OR XARELTO) NO . WHEN WAS YOUR LAST DOSE? DATE: TIME: . LOW PLATELET COUNT NO . SICKLE CELL DISEASE NO . VON WILLIEBRANDS NO . FACTOR V LEIDEN NO . THALLASEMIA NO . ANEMIA NO . EASY BRUISING NO . NEUROLOGY: HAVE YOU FALLEN IN THE PAST 6 MONTHS? NO . ANY NEW EXTREMITY NUMBNESS OR WEAKNESS? NO . HEAD INJURY NO . DEMENTIA NO . CEREBRAL PALSY NO . MULTIPLE SCLEROSIS NO . DIZZINESS NO . HEADACHE NO . STROKES NO . VERTIGO NO . CARDIOLOGY: DO YOU HAVE A PACEMAKER OR DEFIBRILLATOR? NO . ANGINA NO . HEART ATTACK NO . HEART SURGERY NO . CONGESTIVE HEART FAILURE/FLUID OVERLOAD NO . CHEST PAIN NO . HIGH BLOOD PRESSURE NO . IRREGULAR HEART BEAT NO . RESPIRATORY: HAVE YOU BEEN SICK IN THE PAST WEEK? NO . FEVER NO . FLU LIKE SYMPTOMS? NO . CPAP NO . BYPAP NO . ASTHMA NO . EMPHYSEMA NO . CHRONIC LUNG DISEASES NO . SHORTNESS OF BREATH ON EXERTION NO . COUGH NO . SNORING NO . INTEGUMENTARY: DO YOU HAVE ANY RASHES OR OPEN SORES? NO . ALLERGIC/IMMUNO: ARE YOU ALLERGIC TO SHELLFISH OR IV DYE? NO . ANY NEW ALLERGIES? NO . PSYCHIATRIC: DO YOU HAVE THOUGHTS OF HURTING YOURSELF OR SOMEONE ELSE? NO . ARE YOU ABUSED, NEGLECTED, OR IN AN UNSAFE ENVIRONMENT? NO . ENDOCRINOLOGY: ARE YOU DIABETIC? NO . THYROID DISORDER NO . OTHER: DO YOU NEED ANY PRESCRIPTIONS? NO . IF YES, PLEASE LIST: ____ . ANY NEW PROBLEMS WITH YOUR MEDICATIONS? NO . WHEN DID YOU LAST EAT? 03/27 7PM . WHEN DID YOU LAST DRINK? 03/28 7AM . WHAT DID YOU LAST DRINK? COFFEE . NAME OF PERSON DRIVING YOU HOME? TAXI . DO YOU HAVE ANY OTHER QUESTIONS OR CONCERNS NO . VITAL SIGNS WT 159.8 LBS, HT 64 IN, BMI 27.43 INDEX, BP 121/70 MM HG, HR 93 /MIN, RR 16 /MIN, TEMP 97.7 F, OXYGEN SAT % 98%, SAFE IN ENV? (Y/N) Y, NA INITIALS SC 11:00, REVIEWED BY: YVON. ASSESSMENTS INTERVERTEBRAL DISC DISORDER WITH RADICULOPATHY OF LUMBOSACRAL REGION - M51.17 (PRIMARY) PROCEDURES PRE PROCEDURE DIAGNOSIS LUMBOSACRAL DISC DISORDER WITH RADICULOPATHY POST PROCEDURE DIAGNOSIS LUMBOSACRAL DISC DISORDER WITH RADICULOPATHY PROCEDURE LUMBAR EPIDURAL STEROID INJECTION UNDER FLUOROSCOPIC GUIDANCE SURGEON DR. MICHAEL WAN BARREL ASSEMBLY INSPECTOR NONE ANESTHESIA LOCAL PRE PROCEDURE NOTE THE PATIENT HAS A HISTORY OF CHRONIC LOW BACK PAIN. I EVALUATE THE PATIENT AND REVIEWED THE CHART. I WENT OVER THE RISKS, ALTERNATIVES, AND BENEFITS ASSOCIATED WITH THIS PROCEDURE. THE PATIENT WOULD LIKE TO PROCEED AND GIVE CONSENT TO PERFORMED THE PROCEDURE. THE PATIENT DENIES UNEXPLAINABLE WEIGHT LOSS, FEVER, CHILLS, OR NEW CHANGES IN URINARY OR BOWEL CONTROL. DESCRIPTION OF PROCEDURE THE PATIENT WAS BROUGHT TO THE PROCEDURE ROOM AND PLACED IN THE PRONE POSITION. THE LUMBOSACRAL AREA WAS CLEANED WITH BETADINE SOLUTION AND DRAPED ASEPTICALLY. THE PROCEDURE WAS DONE UNDER STERILE CONDITIONS. I CHECKED LATERALITY AND THE LEVEL WHERE THE PROCEDURE WAS GOING TO BE PERFORMED WITH THE PATIENT AND THE SUPPORTING STAFF AT THE MOMENT OF THE TIME OUT IN THE PROCEDURE ROOM. UNDER FLUOROSCOPIC GUIDANCE, THE TARGET POINT WAS SELECTED AT THE INTERLAMINAR LEVEL OF L5-S1. LIDOCAINE WAS USED TO NUMB THE SKIN AND THE SUBCUTANEOUS TISSUE BELOW IT. EPIDURAL TUOHY NEEDLE, 17-GAUGE, WAS ADVANCED UNDER FLUOROSCOPIC GUIDANCE AND FOLLOWING PATIENT FEEDBACK UNTIL THE EPIDURAL SPACE WAS REACHED, 7 CM DEEP INTO THE SKIN BY THE LOSS OF RESISTANCE TECHNIQUE. ISOVUE M DYE 30%, 0.25 ML, WAS INJECTED SHOWING ADEQUATE SPREAD OF THE DYE. THEN, A SOLUTION OF 3 ML OF NORMAL SALINE WITH DEPO-MEDROL 60 MG WAS INJECTED SLOWLY FOLLOWING PATIENT FEEDBACK. THERE WAS NO EVIDENCE OF BLOOD, PARESTHESIA OR CEREBROSPINAL FLUID DURING THE PROCEDURE. THE PATIENT WAS SENT TO THE RECOVERY ROOM. THE PATIENT WAS MOVING THE EXTREMITIES AND DOING WELL. THERE WAS NO COMPLICATION DURING THE PROCEDURE. FLUOROSCOPY TIME WAS 5 SECONDS. POST PROCEDURE NOTE THE PATIENT WILL BE SEEN IN A FOLLOW UP IN THE NEXT FEW WEEKS. INSTRUCTIONS WERE GIVEN, QUESTIONS WERE ANSWERED, AND THE PATIENT EXPRESSED UNDERSTANDING AND AGREES WITH THE PLAN. I, SHAWNA BOLANOS, DOCUMENTED THE ABOVE INFORMATION ACTING A SCRIBE FOR DR. WAN. I HAVE REVIEWED THE ABOVE DOCUMENT, WRITTEN BY SHAWNA BOLANOS SCRIBRobert AND I VERIFY THAT IT IS ACCURATE DIAGNOSTIC IMAGING [facility] FLUORO GUIDE SPINE INJECTION (PAIN)[id number] PROCEDURE CODES 31774 LUMBAR/SACRAL W/ IMAGING 6045F RADXPS IN END [id number] PXD DISPOSITION & COMMUNICATION FOLLOW UP 2 WEEKS ELECTRONICALLY SIGNED BY MICHAEL WAN MD ON 04/02/2017 AT 02:20 PM EST DISCLAIMER : THIS IS A VISIT SUMMARY EXTRACTED FROM THE [employer] CHART. IT IS NOT A COPY OF THE [facility] [employer] PROGRESS NOTE. NICKI
== END ==
LOC: M PAIN 10:30
PROVIDERS: ATTEND Anesthesiology
DX: G89.29 Other chronic pain (principal); M51.17 Intervertebral disc disorders with radiculopathy, lumbosacral region; J45.20 Mild intermittent asthma, uncomplicated; E03.9 Hypothyroidism, unspecified; K21.9 Gastro-esophageal reflux disease without esophagitis; F41.8 Other specified anxiety disorders; Z88.0 Allergy status to penicillin; Z88.2 Allergy status to sulfonamides; Z91.040 Latex allergy status; Z79.899 Other long term (current) drug therapy; Z87.891 Personal history of nicotine dependence
CPT/HCPCS: 62323; J1030; Q9967

== ENCOUNTER 2017-04-02 12:27 | Outpatient (RCR) | payer OTHER ==
[~2017-04-02 12:27] MED LIST changes: -ISOVUE-M 300 61% 15ML VIAL (Q9967) As Ordered ONE; -LIDOCAINE 1% SDV INJ 30 ML VIAL As Ordered ONE; -diazePAM 5 MG TAB As Ordered ONE; -methylPREDNISolone SUSP 40 MG/ML (DEPO-medrol) VIAL (J1030) As Ordered ONE; -oxyCODONE 5MG TAB As Ordered ONE
== END 2017-04-05 ==
LOC: M PT 12:27
PROVIDERS: ATTEND Physician Assistant Medical
DX: Z51.89 Encounter for other specified aftercare (principal); M54.2 Cervicalgia; M79.7 Fibromyalgia; G89.29 Other chronic pain

== ENCOUNTER 2017-04-10 09:11 | Outpatient (RCR) | payer OTHER | END 2017-05-06 | LOC: M PT 09:11 | DX: M51.17 Intervertebral disc disorders with radiculopathy, lumbosacral region (principal); Z51.89 Encounter for other specified aftercare | CPT/HCPCS: 97010 ==

== ENCOUNTER 2017-04-15 10:30 | Emergency (ER) | payer OTHER ==
[~2017-04-15] VITALS: Ht 162.6 cm; Wt 72.2 kg
[2017-04-15] MEDS ORDERED: CYMB60CA3 PO (10:48)
[2017-04-15] MEDS ORDERED: NS 1,000 ML IV ONE (11:30)
[2017-04-15] MEDS ORDERED: KETOROLAC 30 MG/ML VIAL (J1885) IV ONE (11:30)
[2017-04-15 12:03] LABS: BASO # 0.1 10^3/uL (0.0-0.2); BASO % 0.5 % (0.0-1.0); EOS # 0.2 10^3/uL (0.0-0.50); EOS % 1.7 % (0.0-3.0); IMMATURE GRANULOCYTE % 0.3 % (0-0); LYMPH # 3.7 10^3/uL (1.5-4.5); LYMPH % 32.1 % (24.0-44.0); MEAN CORPUSCULAR HGB CONC 34.1 g/dl (32.0-36.5); MONO # 0.8 10^3/uL (0.0-0.8); MONO % 6.8 % (0.0-5.0); NEUTROPHILS # 6.7 10^3/uL (1.8-7.7); NEUTROPHILS % 58.6 % (36.0-66.0); PLATELET COUNT, AUTOMATED 469 10^3/uL (150-450); RED CELL DISTRIBUTION WIDTH 12.3 % (11.5-14.5); WHITE BLOOD COUNT 11.5 10^3/uL (4.0-10.0)
[2017-04-15 12:26] LABS: ALBUMIN 4.5 GM/DL (3.2-5.2); ALKALINE PHOSPHATASE 63 U/L (45-117); ALT/SGPT 24 U/L (12-78); ANION GAP 10 MEQ/L (8-16); AST/SGOT 16 U/L (7-37); BILIRUBIN,DIRECT 0.1 MG/DL (0.0-0.2); BILIRUBIN,TOTAL 0.5 MG/DL (0.2-1.0); BLOOD UREA NITROGEN 10 MG/DL (7-18); CALCIUM LEVEL 9.4 MG/DL (8.5-10.1); CARBON DIOXIDE LEVEL 25 MEQ/L (21-32); CHLORIDE LEVEL 103 MEQ/L (98-107); GLOMERULAR FILTRATION RATE > 60.0 (>60); GLUCOSE, FASTING 93 MG/DL (70-105); POTASSIUM SERUM 3.4 MEQ/L (3.5-5.1); SODIUM LEVEL 138 MEQ/L (136-145); TOTAL PROTEIN 8.6 GM/DL (6.4-8.2)
--- NOTE | 2017-04-15 12:28 | REP ---
REASON: Right upper quadrant pain. COMPARISON: None. Multiple ultrasonographic images of the liver show the hepatic parenchymal echo pattern to be within normal limits. There is no intrahepatic or extrahepatic ductal dilatation. The common bile duct measures 5 mm. Multiple ultrasonographic images of the gallbladder show no abnormalities. There is no pericholecystic edema, gallbladder thickening, or choleliths. The imaged portion of the pancreas and right kidney are within normal limits. IMPRESSION: Unremarkable gallbladder ultrasound. The technologist did make note on the worksheet that the patient complained of pain upon imaging of the gallbladder which is considered consistent with a positive sonographic Garcia sign. Signed by Jose Luis Lee DO 04/15/2017 02:17 P
--- NOTE | 2017-04-15 12:29 | REP ---
TWO VIEW CHEST: REASON: Abdominal pain. FINDINGS: The superior mediastinal structures are midline. The cardiac silhouette is unremarkable in size, shape, and position. The diaphragmatic surfaces of the lungs are regular, and the costophrenic angles are clear. The pulmonary bolaños are clear. The imaged osseous structures are intact. IMPRESSION: There is no acute cardiopulmonary disease. Signed by Jose Luis Lee DO 04/15/2017 02:17 P
--- NOTE | 2017-04-15 14:08 | REP ---
REASON FOR TODAY'S EXAM: Right upper quadrant pain. COMPARISON EXAM: 10/10/2016 which is only a pelvic CT without contrast. The lack of intravenous contrast decreases the sensitivity of the exam. The lung bases are clear. There are no pleural or pericardial effusions. Limited evaluation of the solid intra-abdominal organs and gallbladder show no gross abnormalities. There is no nephroureterolithiasis, hydronephrosis, or hydroureter. There are no urinary bladder calcifications. Limited evaluation of the pancreas, adrenal glands, and kidneys show no gross abnormalities. Limited evaluation of the abdominal aorta and para-aortic regions show no gross abnormalities. The bowel loops and their mesenteries are unremarkable. There is no free fluid or free air. There is a small umbilical hernia, the aperture of which measures approximately 2 cm and through which only mesentery protrudes. This is essentially unchanged from the prior exam. CT PELVIS: There is no free fluid or free air. In the left adnexa, there is an oval shaped 3.6 cm sized low density structure probably representing a left ovarian cyst. There is no adenopathy. The pelvic bowel loops are unremarkable. The osseous structures are stable and intact in the pelvis and are unremarkable superior to the pelvic osseous structures. IMPRESSION: 1. There is no evidence of acute intra-abdominal disease. 2. There is evidence to suggest a 3.6 cm sized left ovarian cyst. 3. Small unchanged umbilical hernia as described above. Signed by Jose Luis Lee DO 04/15/2017 02:18 P
[2017-04-15] MEDS ORDERED: BACL10TA2 PO (14:22)
[2017-04-15 14:31] VITALS: BP 142/86
== END 2017-04-15 14:32 | disposition home or self-care (01) ==
LOC: M ED 10:30
DX: M62.838 Other muscle spasm (principal); Z87.891 Personal history of nicotine dependence; F12.10 Cannabis abuse, uncomplicated
CPT/HCPCS: 36415; 71020; 74176; 76705; 80048; 80076; 81001; 81025; 83690; 85025; 96374; 99284; J1885

== ENCOUNTER → 2017-04-19 | Outpatient (CLI) | payer OTHER | LOC: M PAIN 10:30 | DX: M51.17 Intervertebral disc disorders with radiculopathy, lumbosacral region (principal); M96.1 Postlaminectomy syndrome, not elsewhere classified; E03.9 Hypothyroidism, unspecified; J45.909 Unspecified asthma, uncomplicated; Z79.891 Long term (current) use of opiate analgesic; Z79.899 Other long term (current) drug therapy; Z87.891 Personal history of nicotine dependence; Z88.0 Allergy status to penicillin; Z88.2 Allergy status to sulfonamides; Z91.040 Latex allergy status | CPT/HCPCS: G0463 ==

== ENCOUNTER 2017-05-08 08:24 | Outpatient (RCR) | payer OTHER | END 2017-06-06 | LOC: M PT 08:24 | DX: Z51.89 Encounter for other specified aftercare (principal); M96.1 Postlaminectomy syndrome, not elsewhere classified; M51.17 Intervertebral disc disorders with radiculopathy, lumbosacral region | CPT/HCPCS: 97110 ==

== ENCOUNTER → 2017-05-09 | Outpatient (CLI) | payer OTHER ==
[~2017-05-09] MED LIST changes: -ALBU17IN2 INH; -COLA100C5 PO; -CYCL10TA PO; -GABA-282 PO; -HYDR-3716 PO; -IBUP80TA PO; +ISOVUE-M 300 61% 15ML VIAL (Q9967) As Ordered; -LEVO150T7 PO; +LIDOCAINE 1% SDV INJ 30 ML VIAL As Ordered; -NICO7DIS2 TD; -OXYC1TAB23 PO; -PERCOCET PO; -PRED10TA2 PO; -PRED20TA PO; -PREG25CA PO; -ROLLMIS2 XX; -VALI5TAB PO; -WELL100T PO; +diazePAM 5 MG TAB As Ordered; +methylPREDNISolone SUSP 40 MG/ML (DEPO-medrol) VIAL (J1030) As Ordered; +oxyCODONE 5MG TAB As Ordered
== END ==
LOC: M PAIN 10:15
DX: G89.29 Other chronic pain (principal); M51.17 Intervertebral disc disorders with radiculopathy, lumbosacral region; J45.909 Unspecified asthma, uncomplicated; E03.9 Hypothyroidism, unspecified; Z88.0 Allergy status to penicillin; Z88.2 Allergy status to sulfonamides; Z91.040 Latex allergy status; Z79.899 Other long term (current) drug therapy
CPT/HCPCS: J1030

== ENCOUNTER → 2017-05-31 | Outpatient (CLI) | payer OTHER | LOC: M PAIN 10:00 | DX: M96.1 Postlaminectomy syndrome, not elsewhere classified (principal); M51.17 Intervertebral disc disorders with radiculopathy, lumbosacral region; M79.7 Fibromyalgia; E03.9 Hypothyroidism, unspecified; J45.909 Unspecified asthma, uncomplicated; Z79.891 Long term (current) use of opiate analgesic; Z79.899 Other long term (current) drug therapy; Z87.891 Personal history of nicotine dependence; Z88.0 Allergy status to penicillin; Z88.2 Allergy status to sulfonamides; Z91.040 Latex allergy status | CPT/HCPCS: G0463 ==

== ENCOUNTER → 2017-06-19 | Outpatient (CLI) | payer OTHER ==
[~2017-06-19] MED LIST changes: +BUPIVACAINE HCL 0.25% 10 ML VIAL As Ordered; +BUPIVACAINE HCL 0.25% 30 ML VIAL As Ordered; -ISOVUE-M 300 61% 15ML VIAL (Q9967) As Ordered; -LIDOCAINE 1% SDV INJ 30 ML VIAL As Ordered; +TRIAMCINOLONE ACETONIDE SUSP 40 MG/ML VIAL (J3301) As Ordered; -methylPREDNISolone SUSP 40 MG/ML (DEPO-medrol) VIAL (J1030) As Ordered
== END ==
LOC: M PAIN 13:45
DX: G89.29 Other chronic pain (principal); M54.5 Low back pain; M79.1 Myalgia; J45.909 Unspecified asthma, uncomplicated; E03.9 Hypothyroidism, unspecified; Z79.899 Other long term (current) drug therapy; Z88.0 Allergy status to penicillin; Z88.2 Allergy status to sulfonamides; Z91.040 Latex allergy status; Z87.891 Personal history of nicotine dependence
CPT/HCPCS: J3301

== ENCOUNTER → 2017-07-10 | Outpatient (CLI) | payer OTHER | LOC: M PAIN 09:00 | DX: G57.91 Unspecified mononeuropathy of right lower limb (principal); M96.1 Postlaminectomy syndrome, not elsewhere classified; M51.17 Intervertebral disc disorders with radiculopathy, lumbosacral region; M79.1 Myalgia; E03.9 Hypothyroidism, unspecified; J45.909 Unspecified asthma, uncomplicated; Z79.899 Other long term (current) drug therapy; Z88.8 Allergy status to other drugs, medicaments and biological substances; Z91.040 Latex allergy status; Z87.891 Personal history of nicotine dependence | CPT/HCPCS: G0463 ==

== ENCOUNTER → 2017-09-28 | Outpatient (CLI) | payer OTHER | LOC: M PAIN 10:00 | DX: G57.91 Unspecified mononeuropathy of right lower limb (principal); M96.1 Postlaminectomy syndrome, not elsewhere classified; M51.17 Intervertebral disc disorders with radiculopathy, lumbosacral region; M79.7 Fibromyalgia; J45.909 Unspecified asthma, uncomplicated; E03.9 Hypothyroidism, unspecified; Z79.899 Other long term (current) drug therapy; Z88.0 Allergy status to penicillin; Z88.2 Allergy status to sulfonamides; Z88.8 Allergy status to other drugs, medicaments and biological substances; Z91.040 Latex allergy status; Z87.891 Personal history of nicotine dependence | CPT/HCPCS: G0463 ==

== ENCOUNTER → 2017-10-02 | Outpatient (CLI) | payer OTHER ==
[2017-10-02 12:28] LABS: BASO # 0.1 10^3/uL (0.0-0.2); BASO % 0.7 % (0.0-1.0); EOS # 0.3 10^3/uL (0.0-0.50); EOS % 3.8 % (0.0-3.0); HEMATOCRIT 42.8 % (36.0-47.0); IMMATURE GRANULOCYTE % 0.1 % (0-3.0); LYMPH # 2.6 10^3/uL (1.5-4.5); LYMPH % 34.2 % (24.0-44.0); MEAN CORPUSCULAR HEMOGLOBIN 32.1 pg (27.0-33.0); MEAN CORPUSCULAR VOLUME 91.6 fl (80.0-96.0); MONO # 0.5 10^3/uL (0.0-0.8); MONO % 6.8 % (0.0-5.0); NEUTROPHILS # 4.1 10^3/uL (1.8-7.7); NEUTROPHILS % 54.4 % (36.0-66.0); PLATELET COUNT, AUTOMATED 484 10^3/uL (150-450); RED BLOOD COUNT 4.67 10^6/uL (4.00-5.40); RED CELL DISTRIBUTION WIDTH 11.9 % (11.5-14.5); WHITE BLOOD COUNT 7.5 10^3/uL (4.0-10.0)
[2017-10-02 13:33] LABS: ALBUMIN 4.3 GM/DL (3.2-5.2); ALBUMIN/GLOBULIN RATIO 1.16 (1.00-1.93); ALKALINE PHOSPHATASE 74 U/L (45-117); ALT/SGPT 24 U/L (12-78); ANION GAP 11 MEQ/L (8-16); AST/SGOT 21 U/L (7-37); BILIRUBIN,TOTAL 0.5 MG/DL (0.2-1.0); BLOOD UREA NITROGEN 8 MG/DL (7-18); CALCIUM LEVEL 9.2 MG/DL (8.5-10.1); CARBON DIOXIDE LEVEL 21 MEQ/L (21-32); CHLORIDE LEVEL 106 MEQ/L (98-107); CREATININE FOR GFR 0.75 MG/DL (0.55-1.30); FREE THYROXINE INDEX 4.6 % (1.3-4.8); GLOMERULAR FILTRATION RATE > 60.0 (>60); GLUCOSE, FASTING 97 MG/DL (70-100); SODIUM LEVEL 138 MEQ/L (136-145); T UPTAKE 34 % (30-39); THYROXINE (T4) 13.4 UG/DL (4.5-12.0)
[2017-10-03 11:00] LABS: THYROGLOBULIN ANTIBODY 352.6 U/ML (<60.0)
== END ==
LOC: M LAB 11:56
DX: G57.91 Unspecified mononeuropathy of right lower limb (principal)
CPT/HCPCS: 84443

== ENCOUNTER → 2017-11-01 | Outpatient (REF) | payer OTHER ==
[2017-11-01 19:02] LABS: ALBUMIN/GLOBULIN RATIO 1.03 (1.00-1.93); ALKALINE PHOSPHATASE 68 U/L (45-117); ALT/SGPT 26 U/L (12-78); ANION GAP 11 MEQ/L (8-16); AST/SGOT 20 U/L (7-37); BILIRUBIN,TOTAL 0.4 MG/DL (0.2-1.0); BLOOD UREA NITROGEN 10 MG/DL (7-18); CALCIUM LEVEL 9.1 MG/DL (8.5-10.1); CARBON DIOXIDE LEVEL 27 MEQ/L (21-32); CHLORIDE LEVEL 102 MEQ/L (98-107); CREATININE FOR GFR 0.67 MG/DL (0.55-1.30); GLOMERULAR FILTRATION RATE > 60.0 (>60); GLUCOSE, FASTING 73 MG/DL (70-100); POTASSIUM SERUM 4.5 MEQ/L (3.5-5.1); SODIUM LEVEL 140 MEQ/L (136-145); TOTAL PROTEIN 7.9 GM/DL (6.4-8.2)
[2017-11-01 19:07] LABS: TOTAL 25(OH) VITAMIN D 32.8 NG/ML (30.0-100.0)
== END ==
LOC: M SFHCPLAZ 15:08
DX: J45.20 Mild intermittent asthma, uncomplicated (principal); E55.9 Vitamin D deficiency, unspecified

== ENCOUNTER → 2017-11-09 | Outpatient (CLI) | payer OTHER | LOC: M PAIN 10:00 | DX: R25.2 Cramp and spasm (principal); M96.1 Postlaminectomy syndrome, not elsewhere classified; M79.7 Fibromyalgia; M51.16 Intervertebral disc disorders with radiculopathy, lumbar region; J32.9 Chronic sinusitis, unspecified; E03.9 Hypothyroidism, unspecified; F17.210 Nicotine dependence, cigarettes, uncomplicated; Z79.899 Other long term (current) drug therapy; Z88.0 Allergy status to penicillin; Z88.2 Allergy status to sulfonamides; Z88.8 Allergy status to other drugs, medicaments and biological substances; Z91.040 Latex allergy status | CPT/HCPCS: G0463 ==

== ENCOUNTER → 2018-02-08 | Outpatient (CLI) | payer OTHER | LOC: M PAIN 10:15 | DX: R25.2 Cramp and spasm (principal); M96.1 Postlaminectomy syndrome, not elsewhere classified; M79.10 Myalgia, unspecified site; M79.7 Fibromyalgia; M51.16 Intervertebral disc disorders with radiculopathy, lumbar region; J45.909 Unspecified asthma, uncomplicated; E03.9 Hypothyroidism, unspecified; R01.1 Cardiac murmur, unspecified; F17.210 Nicotine dependence, cigarettes, uncomplicated; Z79.899 Other long term (current) drug therapy; Z88.0 Allergy status to penicillin; Z88.2 Allergy status to sulfonamides; Z88.8 Allergy status to other drugs, medicaments and biological substances; Z91.040 Latex allergy status | CPT/HCPCS: G0463 ==

== ENCOUNTER → 2018-06-14 | Outpatient (CLI) | payer MEDICARE ==
[~2018-06-14] MED LIST changes: +ALBU17IN2 INH; +BACL10TA2 PO; -BUPIVACAINE HCL 0.25% 10 ML VIAL As Ordered; -BUPIVACAINE HCL 0.25% 30 ML VIAL As Ordered; +COLA100C5 PO; +CYCL10TA PO; +CYMB60CA3 PO; +GABA-843 PO; +HYDR-3716 PO; +IBUP80TA PO; +LEVO150T7 PO; +NICO7DIS2 TD; +OXYC1TAB23 PO; +PERCOCET PO; +PRED10TA2 PO; +PRED20TA PO; +PREG25CA PO; +ROLLMIS2 XX; -TRIAMCINOLONE ACETONIDE SUSP 40 MG/ML VIAL (J3301) As Ordered; +VALI5TAB PO; +WELL100T PO; -diazePAM 5 MG TAB As Ordered; -oxyCODONE 5MG TAB As Ordered
--- NOTE | 2018-06-30 23:31 | ECWPNPC ---
PATIENT NAME: NARENDRA LOONEY : 1985 GENDER: FEMALE VISIT DATE: 06/14/2018 DISCHARGE DATE: 06/14/18 1044 VISIT LOCKED DATE TIME: PHYSICIAN: STEPHAN AVILES RESOURCE: STEPHAN AVILES REASON FOR APPOINTMENT 1. SW-30 MIN HISTORY OF PRESENT ILLNESS HISTORY OF PRESENT ILLNESS: HERE FOR F/U OF CHRONIC GENERALIZED PAIN.CHIEF AREA OF PAIN IS LOW BACK.HAD 2 LUMBAR SURGERIES AND 2016.HAS RAIDICULAR PAIN AND NEUROPATHY.RATING PAIN VAS 6/10. PAIN THE PATIENT DESCRIBES THE PAIN... FALL RISK SCREENING: SCREENING :NO FALLS IN THE PAST YEAR CURRENT MEDICATIONS TAKING VENTOLIN HFA 90 MCG/ACT AEROSOL SOLUTION 1-2 PUFFS NEEDED INHALATION EVERY 4 HRS TAKING LEVOTHYROXINE SODIUM 100 MCG TABLET 1 TABLET ON AN EMPTY STOMACH IN THE MORNING ORALLY ONCE A DAY TAKING CYMBALTA 30 MG CAPSULE DELAYED RELEASE PARTICLES 1 CAPSULE ORALLY DAILY TDD=90 MG TAKING DULOXETINE HCL 60 MG CAPSULE DELAYED RELEASE PARTICLES 1 CAPSULE ORALLY ONCE A DAY TDD= 90 MG TAKING METHOCARBAMOL 750 MG TABLET 1 TABLET ORALLY THREE TIMES DAILY TAKING PERCOCET 10-325 MG TABLET 1 TABLET NEEDED ORALLY EVERY 6 HRS PRN PAIN MDD=4 TAKING ALPRAZOLAM 0.25 MG TABLET 1 TABLET ORALLY TWICE A DAY MDD=2 PRN EXTREME ANXIETY NOT-TAKING SPACER/AERO-HOLDING CHAMBERS - DEVICE DIRECTED ORALLY WITH ALBUTEROL AND FLOVENT INHALERS BID NOT-TAKING QVAR REDIHALER 40 MCG/ACT AEROSOL BREATH ACTIVATED 1 PUFF INHALATION TWICE A DAY (J45.20) UNKNOWN DULOXETINE HCL 30 MG CAPSULE DELAYED RELEASE PARTICLES 1 CAPSULE ORALLY DAILY TDD=90 MG UNKNOWN BUSPIRONE HCL 10 MG TABLET 1 TABLET ORALLY TWICE A DAY UNKNOWN BACLOFEN 10 MG TABLET 1/2 TO 1 TABLET ORALLY BEFORE BEDTIME UNKNOWN VITAMIN D (ERGOCALCIFEROL) 81151 UNIT CAPSULE 1 CAPSULE ORALLY EVERY WEEK MEDICATION LIST REVIEWED AND RECONCILED WITH THE PATIENT PAST MEDICAL HISTORY BACK AND LEFT LEG PAIN, CHRONIC ASTHMA HYPOTHYROID THORACIC BACK PAIN RIGHT GROIN PAIN HEART PALPITATION ALLERGIES PENICILLIN (FOR ALLERGIES USE ONLY): ANAPHYLAXIS: ALLERGY SULFA (FOR ALLERGY USE ONLY): ANAPHYLAXIS: ALLERGY LATEX (FOR ALLERGY USE ONLY): RASH: ALLERGY GABAPENTIN: MIGRAINES: SIDE EFFECTS TIZANIDINE HCL: MIGRAINES: SIDE EFFECTS BUSPIRONE HCL: ALTERED COGNITION/LOSS OF APPETITE: SIDE EFFECTS SURGICAL HISTORY SPINE SURGERY LUMBAR L4-L5 08/10/15 HAND SURGERY RIGHT.TENDON--TRIGGER FINGER RELEASE LAMINECTOMY L3-4,L4-5 05/18/16 FAMILY HISTORY FATHER: ALIVE 56 YRS, COLON CANCER, DIAGNOSED WITH STROKE, CANCER MOTHER: ALIVE 53 YRS, DIAGNOSED WITH OTHER SIBLINGS: ALIVE 36 YRS, DIAGNOSED WITH PSYCHIATRIC CONDITIONS 1 SISTER(S) . DAD-ARTHRITIS, COLON CA, HYPERLIPIDEMIAMOM--ARTHRITIS, MYALGIA, HYPERLIPIDEMIA. HOSPITALIZATION/MAJOR DIAGNOSTIC PROCEDURE BACK AND LEG PAIN 2016 BACK SURGERIES REVIEW OF SYSTEMS REVIEWED BY: PROVIDER: STEPHAN MUNSON . CONSTITUTIONAL: ANY CHANGE IN YOUR MEDICAL CONDITION? NO . CHILLS NO . FEVER NO . INFECTION: DO YOU HAVE NEW INFECTIONS? NO . DO YOU HAVE HISTORY OF MRSA? NO . MUSCULOSKELETAL: ANY NEW PATTERNS OF PAIN OR NUMBNESS? YES FROM NO MEDICATIONS . GASTROENTEROLOGY: ANY NEW CHANGE IN BOWEL CONTROL? NO . GENITOURINARY: ANY NEW CHANGE IN BLADDER CONTROL? NO . IS THERE A CHANCE YOU COULD BE ? NO . HEMATOLOGY/LYMPH: DO YOU TAKE ANY BLOOD THINNERS? (FOR EXAMPLE- COUMADIN, PLAVIX, AGGRENOX, PLATEL, PRADAXA, OR XARELTO) NO . WHEN WAS YOUR LAST DOSE? DATE: TIME: . NEUROLOGY: HAVE YOU FALLEN IN THE PAST 12 MONTHS? NO . ANY NEW EXTREMITY NUMBNESS OR WEAKNESS? NO . CARDIOLOGY: DO YOU HAVE A PACEMAKER OR DEFIBRILLATOR? NO . RESPIRATORY: HAVE YOU BEEN SICK IN THE PAST WEEK? NO . FEVER NO . FLU LIKE SYMPTOMS? NO . COUGH NO . INTEGUMENTARY: DO YOU HAVE ANY RASHES OR OPEN SORES? NO . ALLERGIC/IMMUNO: ARE YOU ALLERGIC TO IV DYE? NO . ANY NEW ALLERGIES? NO . PSYCHIATRIC: DO YOU HAVE THOUGHTS OF HURTING YOURSELF OR SOMEONE ELSE? NO . ARE YOU ABUSED, NEGLECTED, OR IN AN UNSAFE ENVIRONMENT? NO . ENDOCRINOLOGY: ARE YOU DIABETIC? NO . OTHER: DO YOU NEED ANY PRESCRIPTIONS? NEEDS XANAX PERCOCET . IF YES, PLEASE LIST: ____ . ANY NEW PROBLEMS WITH YOUR MEDICATIONS? NO . WHEN DID YOU LAST EAT? ____ . WHEN DID YOU LAST DRINK? ____ . WHAT DID YOU LAST DRINK? ____ . NAME OF PERSON DRIVING YOU HOME? ____ . DO YOU HAVE ANY OTHER QUESTIONS OR CONCERNS NO . VITAL SIGNS WT 147 LBS, HT 64 IN, BMI 25.23 INDEX, BP 131/85 MM HG, HR 113 /MIN, RR 16 /MIN, TEMP 97.6 F, OXYGEN SAT % 99%, SAFE IN ENV? (Y/N) YES, NA INITIALS SC 10:01. EXAMINATION GENERAL EXAMINATION: PSYCHALERT , ORIENTED X 3 . . LUNGS:CLEAR TO AUSCULTATION BILATERALLY. HEART:HEART RATE REGULAR, RAPID, 1/6, MURMUR. MUSCULOSKELETAL:TRIGGER POINTS AND TIGHT FIBEROUS BANDS ELICITED WITH PALPATION OVER LUMBAR PARAVERTEBRAL MUSCLES .. ASSESSMENTS LUMBAR POST-LAMINECTOMY SYNDROME - M96.1 (PRIMARY) TREATMENT LUMBAR POST-LAMINECTOMY SYNDROME STOP CYMBALTA CAPSULE DELAYED RELEASE PARTICLES, 30 MG, 1 CAPSULE, ORALLY, DAILY TDD=90 MG CONTINUE DULOXETINE HCL CAPSULE DELAYED RELEASE PARTICLES, 60 MG, 1 CAPSULE, ORALLY, ONCE A DAY TDD= 90 MG STOP METHOCARBAMOL TABLET, 750 MG, 1 TABLET, ORALLY, THREE TIMES DAILY DECREASE PERCOCET TABLET, 10-325 MG, 1 TABLET NEEDED, ORALLY, EVERY 6 HRS PRN PAIN MDD=4 #100 TAB SHOULD LAST 30 DAYS, 30 DAY(S), 100, REFILLS 0 REFILL ALPRAZOLAM TABLET, 0.25 MG, 1 TABLET, ORALLY, TWICE A DAY MDD=2 PRN EXTREME ANXIETY, 30 DAY(S), 10, REFILLS 0 STOP DULOXETINE HCL CAPSULE DELAYED RELEASE PARTICLES, 30 MG, 1 CAPSULE, ORALLY, DAILY TDD=90 MG NOTES: ISTOP REGISTRY REVIEWED AND DEMONSTRATES COMPLLIANCE. (REF #[id number] ) BRINGS IN MEDICATIONS WHICH IS APPROPRIATE FOR WHAT WAS DISPENSED. RECENT URINE TOXICOLOGY REVIEWED. NO UNAUTHORIZED MEDICATIONS. NO ILLICIT SUBSTANCES AND PRESCRIBED MEDICATIONS WERE PRESENT. , RISKS AND BENEFITS OF NARCOTIC/OPIOD MEDICATIONS WERE REVIEWED WITH PATIENT - THIS INCLUDES BUT IS NOT LIMITED TO RISK OF DEPENDANCE/DEVELOPMENT OF ADDICTION, MOOD DISTURBANCE AND DEPRESSION, OSTEOPOROSIS, HORMONAL AND LABIDAL CHANGES, RESPIRATORY DEPRESSION AND . PATIENT IS ADVISED NOT TO DRIVE OR DRINK ALCOHOL WHILE ON THESE MEDICATIONS, [facility] NARCOTIC AGREEMENT WAS UPDATED REVIEWED AND SIGNED TODAY BY THE PATIENT. SEE ATTACHED DOCUMENT FOR FULL DETAILS; SPECIFIC ISSUES WERE REVIEWED: 1) KEEP PAIN MEDS IN THEIR ORIGINAL BOTTLES AND ANY WEEKLY PLANNERS ARE TO BE BROUGHT TO THE PAIN CENTER AT EVERY VISIT. 2) THE PATIENT IS NOT TO INCREASE DOSING OR TIMING OF THEIR PAIN MEDICATION WITHOUT SPECIFIC DIRECTION OF THEIR PAIN CENTERPROVIDER (NOT ER OR OTHER PROVIDERS). 3) ALL PAIN MEDS ARE TO BE KEPT SECURED, IN A LOCKED BOX. 4) NO PAIN MEDS ARE TO BE SHARED WITH ANY OTHER PERSON FOR ANY REASON. 5) NO PAIN MEDS MAY BE TAKEN FROM ANY FRIENDS OR RELATIVES FOR ANY REASON 6) NO MEDS OR SUBSTANCES WHICH ARE NOT LEGAL ARE TO BE USED- NO MARIJUANA, NO COCAINE, AMPHETAMINES, HEROIN, OR OTHERS ARE EVER TO BE USED. 7)URINE TESTING IS DONE TO ACCOUNT FOR MEDS AND SUBSTANCES BEING TAKEN AND WILL BE DONE RANDOMLY. PROCEDURE CODES FA211 ESTABILISHED PATIENT [facility] CHARGE DISPOSITION & COMMUNICATION FOLLOW UP 2 MONTHS ELECTRONICALLY SIGNED BY ARPIT JEROME ON 06/30/2018 AT 02:25 PM EST DISCLAIMER : THIS IS A VISIT SUMMARY EXTRACTED FROM THE [employer] CHART. IT IS NOT A COPY OF THE [employer] PROGRESS NOTE. NICKI
== END ==
LOC: M PAIN 10:00
PROVIDERS: ATTEND Nurse Practitioner Family
DX: M96.1 Postlaminectomy syndrome, not elsewhere classified (principal); J45.20 Mild intermittent asthma, uncomplicated; E03.9 Hypothyroidism, unspecified; Z88.0 Allergy status to penicillin; Z88.2 Allergy status to sulfonamides; Z88.8 Allergy status to other drugs, medicaments and biological substances; Z91.040 Latex allergy status; Z79.899 Other long term (current) drug therapy

== ENCOUNTER → 2021-03-22 | Outpatient (CLI) | payer MEDICARE, MEDICAID ==
[~2021-03-22] MED LIST changes: +CYCL-707 PO; -CYCL10TA PO; -CYMB60CA3 PO; +CYMB60CA4 PO; +GABA-282 PO; -GABA-843 PO
[2021-03-22 13:29] LABS: FREE T4 1.55 NG/DL (0.76-1.46); THYROID STIMULATING HORMONE 0.041 uIU/ML (0.358-3.740)
== END ==
LOC: M LAB 12:08
DX: E03.9 Hypothyroidism, unspecified (principal)

== ENCOUNTER 2021-03-28 02:48 | Emergency (ER) | payer MEDICARE, MEDICAID ==
[~2021-03-28] VITALS: Ht 162.6 cm; Wt 63.5 kg
[2021-03-28 02:49] VITALS: BP 109/70
--- OUTSIDE RECORDS SUMMARY | 2021-03-28 02:55 | CCD ---
Author Author [facility] Organization [facility] Address Unknown Phone Unavailable Support Name Relationship Address Phone Angelo Looney Next Of Kin [address] [address] [place] Next Of Kin Unknown Unavailable [place] Next Of Kin Unknown Unavailable MAUREEN LOONEY Next Of Kin [address] [place] [address] KELSEY LOONEY Next Of Kin [address] [facility], [address] [address]GA [address] [place] [address] Unavailable Maureen Looney [address] [place] [address] ANGELO LOONEY ECON [address] [place] [address] Re-disclosure Warning The records that you are about to access may contain information from federally-assisted alcohol or drug abuse programs. If such information is present, then the following federally mandated warning applies: This information has been disclosed to you from records protected by federal confidentiality rules (42 CFR part 2). The federal rules prohibit you from making any further disclosure of this information unless further disclosure is expressly permitted by the written consent of the person to whom it pertains or as otherwise permitted by 42 CFR part 2. A general authorization for the release of medical or other information is NOT sufficient for this purpose. The Federal rules restrict any use of the information to criminally investigate or prosecute any alcohol or drug abuse patient.The records that you are about to access may contain highly sensitive health information, the redisclosure of which is protected by Article 27-F of the [facility] Public Health law. If you continue you may have access to information: Regarding HIV / AIDS; Provided by facilities licensed or operated by the [facility] Office of Mental Health; or Provided by the [facility] Office for People With Developmental Disabilities. If such information is present, then the following [facility] mandated warning applies: This information has been disclosed to you from confidential records which are protected by state law. State law prohibits you from making any further disclosure of this information without the specific written consent of the person to whom it pertains, or as otherwise permitted by law. Any unauthorized further disclosure in violation of state law may result in a fine or mcc sentence or both. A general authorization for the release of medical or other information is NOT sufficient authorization for further disc losure. Family History Family Member Name Family Member Gender Family Member Status Date o f Status Description Data Source(s) Unknown Male Problem MEDENT ([facility]) Unknown Female Problem MEDENT ([facility]) Unknown Female Problem MEDENT ([facility]) Unknown Female Medications No Information Insurance Providers Payer name Policy type / Coverage type Policy ID Covered green party ID Covered green party's relationship to johnson Policy Johnson Plan Information Medicaid [facility] Part B [id number] Self [facility] I [id number] Self [id number] [facility] Community Plan Commercial [id number] Self Medicaid S [id number] S [id number] Managed Care - [facility] Community Plan P [id number] S [id number] [facility] [id number] SP [id number] [facility] Comm Plan Medicaid F [id number] SELF [id number] ANSI-Medicare Part B [id number] MEDICAID [id number] ANSI-Medicaid [id number] ANSI-Medicaid [id number] ANSI-Medicare Part B [id number] ANSI-Medicaid [id number] ANSI-Medicaid [id number] ANSI-Medicare Part B [id number] ANSI-Medicaid [id number] ANSI-Medicaid [id number] ANSI-Medicaid [id number] ANSI-Medicaid [id number] ANSI-Medicaid [id number] ANSI-Medicaid [id number] ANSI-Medicaid [id number] ANSI-Medicaid [id number] ANSI-Medicaid [id number] ANSI-Medicaid [id number] ANSI-Medicaid [id number] ANSI-Medicaid [id number] [facility] [id number] ANSI-Medicaid [id number] ANSI-Medicaid [id number] ANSI-Medicaid [id number] ANSI-Medicaid [id number] ANSI-Medicaid [id number] ANSI-Medicaid [id number] ANSI-Medicaid [id number] ANSI-Medicaid [id number] ANSI-Medicaid [id number] ANSI-Medicaid [id number] ANSI-Medicaid [id number] ANSI-Medicaid [id number] ANSI-Medicaid [id number] ANSI-Medicaid [id number] [facility] [id number] ANSI-Medicaid [id number] ANSI-Medicaid [id number] ANSI-Medicaid [id number] ANSI-Medicaid [id number] ANSI-Medicaid [id number] ANSI-Medicaid [id number] ANSI-Medicaid [id number] ANSI-Medicaid [id number] ANSI-Medicaid [id number] ANSI-Medicaid [id number] [facility] Community Plan Commercial [id number] Self [id number] [facility] O [id number] S [id number] MEDICAID MANJULA [id number] S [id number] [facility] Hmo Commercial [id number] Self [facility] Community Plan Commercial [id number] Self UNAVAILABLE UNAVAILA BLE MEDICAID GME [id number] [facility] HEA [id number] 1 [id number] UN COMMUNITY PLAN MCDHMO [id number] SP [id number] UN COMMUNITY PLAN MCDO [id number] SP [id number] [place] [id number] SP [id number] Y SELF PAY SP [id number] S [id number] MEDICARE [id number] SP [id number] ANSI-Medicaid [id number] ANSI-Medicaid [id number] ANSI-Medicare Part B [id number] ANSI-Medicaid [id number] ANSI-Medicaid [id number] Problems, Conditions, and Diagnoses No Information Surgeries/Procedures No Information Results ID Date Data Source [id number] 04/09/2020 12:00:00 AM EST [facility] Name Value Range Interpretation Code Description Data Belen rce(s) Supporting Document(s) SARS coronavirus 2 RNA [Presence] in Res piratory specimen by KADEN with probe detection [facility] This lab was ordered by Herminio Rowell and reported by [facility]. Procedure Social History No Information
--- OUTSIDE RECORDS SUMMARY | 2021-03-28 04:26 | CCD ---
Author Author [facility] Organization [facility] Address Unknown Phone Unavailable Support Name Relationship Address Phone Angelo Looney Next Of Kin [address] [address] [place] Next Of Kin Unknown Unavailable UN Next Of Kin Unknown Unavailable MAUREEN LOONEY Next Of Kin [address] [place] [address] KELSEY LOONEY Next Of Kin [address] [place] [address], [address] GEORGINA REYNAGA ECON [address] [place] [address] Unavailable Maureen Looney ECON [address] [place] [address] ANGELO LOONEY ECON [address] [place] [address] Re-disclosure Warning The records that you are [...] is protected by Article 27-F of the [facility] Public Health law. If you continue you may have access to information: Regarding HIV / AIDS; Provided by facilities licensed or operated by the [facility] Office of Mental Health; or Provided by the [facility] Office for People With Developmental Disabilities. If such information is present, then the following [facility] mandated warning applies: This information has been [...] law may result in a fine or halfway sentence or both. A general authorization for the release of medical or other information is NOT sufficient authorization for further disc losure. Family History Family Member Name Family Member Gender Family Member Status Date o f Status Description Data Source(s) Unknown Male Problem MEDENT ([facility]) Unknown Female Problem MEDENT ([facility]) Unknown Female Problem MEDENT ([facility]) Unknown Female Medications No Information Insurance Providers Payer name Policy type / Coverage type Policy ID Covered republican ID Covered republican's relationship to johnson Policy Johnson Plan Information Medicaid [facility] Part B [id number] Self [facility] I [id number] Self [id number] [facility] Commercial [id number] Self Medicaid S [id number] S [id number] Managed Care - [facility] Community Plan P [id number] S [id number] [facility] COMMUNITY PLAN MCDO [id number] SP [id number] [facility] Comm Plan Medicaid F [id number] SELF [id number] ANSI-Medicare Part B [id number] MEDICAID [id number] ANSI-Medicaid [id number] ANSI-Medicaid [id number] ANSI-Medicare Part B [id number] ANSI-Medicaid [id number] ANSI-Medicaid [id number] ANSI-Medicare Part B [id number] ANSI-Medicaid [id number] ANSI-Medicaid [id number] ANSI-Medicaid [id number] ANSI-Medicaid [id number] ANSI-Medicaid [id number] ANSI-Medicaid [id number] ANSI-Medicaid [id number] ANSI-Medicaid [id number] ANSI-Medicaid [id number] ANSI-Medicaid [id number] ANSI-Medicaid [id number] ANSI-Medicaid [id number] [facility] [id number] ANSI-Medicaid [id number] ANSI-Medicaid [id number] ANSI-Medicaid [id number] ANSI-Medicaid [id number] ANSI-Medicaid [id number] ANSI-Medicaid [id number] ANSI-Medicaid [id number] ANSI-Medicaid [id number] ANSI-Medicaid [id number] ANSI-Medicaid [id number] ANSI-Medicaid [id number] ANSI-Medicaid [id number] ANSI-Medicaid [id number] ANSI-Medicaid [id number] [facility] [id number] ANSI-Medicaid [id number] ANSI-Medicaid [id number] ANSI-Medicaid [id number] ANSI-Medicaid [id number] ANSI-Medicaid [id number] ANSI-Medicaid [id number] ANSI-Medicaid [id number] ANSI-Medicaid [id number] ANSI-Medicaid [id number] ANSI-Medicaid [id number] [facility] Commercial [id number] Self [id number] [facility] O [id number] S [id number] MEDICAID MANJULA [id number] S [id number] [facility] Hmo Commercial [id number] Self [facility] Community Plan Commercial [id number] Self UNAVAILABLE UNAVAILA BLE MEDICAID GME [id number] [facility] HEA [id number] 1 [id number] UN COMMUNITY PLAN MCDHMO [id number] SP [id number] UN COMMUNITY PLAN MCDO [id number] SP [id number] [place] [id number] SP [id number] Y SELF PAY SP [id number] S [id number] MEDICARE [id number] SP [id number] ANSI-Medicaid [id number] ANSI-Medicaid [id number] ANSI-Medicare Part B [id number] ANSI-Medicaid [id number] ANSI-Medicaid [id number] Problems, Conditions, and Diagnoses No Information Surgeries/Procedures No Information Results ID Date Data Source [id number] 04/09/2020 12:00:00 AM EST [facility] Name Value Range Interpretation Code Description Data Eblen rce(s) Supporting Document(s) SARS coronavirus 2 RNA [Presence] in Res piratory specimen by KADEN with probe detection [facility] This lab was ordered by Herminio Rowell and reported by [facility]. Procedure Social History No Information
--- NOTE | 2021-03-28 06:25 | ECGEPIP ---
[facility] - ED Test Date: 2021-03-28 Pat Name: NARENDRA LOONEY Department: Room: - Gender: Female [employer] Management Intern: ISABEL : 1985 Requested By: SATNAM Alfaro Order Number: [id number] Reading MD: Madhavi Gauthier Measurements Intervals [place] Rate: 91 P: 79 OR: 158 QRS: 73 QRSD: 86 T: 36 QT: 360 QTc: 442 Interpretive Statements Normal sinus rhythm Delayed R wave progression Nonspecific ST T wave changes low QRS voltage limb leads 04/28/[address] T wave changes Similar morphology Electronically Signed on 03-28-2021 6:24:48 EST by Madhavi Gauthier
== END 2021-03-28 04:28 | disposition left against medical advice (07) ==
LOC: M ED 02:48
DX: Z53.21 Procedure and treatment not carried out due to patient leaving prior to being seen by health care provider (principal)

== ENCOUNTER → 2022-03-06 | Outpatient (REF) | payer MEDICARE, MEDICAID ==
[2022-03-06 17:32] LABS: BASO # 0.1 10^3/uL (0.0-0.2); BASO % 0.9 % (0.0-1.0); EOS # 0.3 10^3/uL (0.0-0.5); EOS % 3.3 % (0.0-3.0); HEMATOCRIT 43.9 % (36.0-47.0); HEMOGLOBIN 14.9 g/dl (12.0-15.5); LYMPH # 3.3 10^3/uL (1.5-5.0); LYMPH % 36.6 % (24.0-44.0); MEAN CORPUSCULAR HEMOGLOBIN 33.3 pg (27.0-33.0); MEAN CORPUSCULAR HGB CONC 33.9 g/dl (32.0-36.5); MONO # 0.6 10^3/uL (0.0-0.8); MONO % 6.7 % (2.0-8.0); NEUTROPHILS # 4.8 10^3/uL (1.5-8.5); NEUTROPHILS % 52.3 % (36.0-66.0); PLATELET COUNT, AUTOMATED 451 10^3/uL (150-450); RED BLOOD COUNT 4.48 10^6/uL (4.00-5.40); WHITE BLOOD COUNT 9.1 10^3/uL (4.0-10.0)
[2022-03-06 18:04] LABS: HEMOGLOBIN A1c 5.4 %
[2022-03-06 18:25] LABS: ALT/SGPT 23 U/L (12-78); BILIRUBIN,TOTAL 0.6 MG/DL (0.2-1.0); BLOOD UREA NITROGEN 10 MG/DL (7-18); CALCIUM LEVEL 9.3 MG/DL (8.5-10.1); CARBON DIOXIDE LEVEL 24 MEQ/L (21-32); CHLORIDE LEVEL 105 MEQ/L (98-107); CHOLESTEROL LEVEL 191 MG/DL (<200); CHOLESTEROL RISK RATIO 3.537 (<5); CREATININE FOR GFR 0.82 MG/DL (0.55-1.30); GLOMERULAR FILTRATION RATE > 60.0 (>60); GLUCOSE, FASTING 83 MG/DL (70-100); HDL CHOLESTEROL 54 MG/DL (>40); LDL CHOLESTEROL 123 MG/DL (<100); NON-HDL-C 137 MG/DL; POTASSIUM SERUM 4.9 MEQ/L (3.5-5.1); SODIUM LEVEL 135 MEQ/L (136-145); THYROID STIMULATING HORMONE 0.613 uIU/ML (0.358-3.740); TOTAL PROTEIN 7.7 GM/DL (6.4-8.2); TRIGLYCERIDES LEVEL 71 MG/DL (<150)
[2022-03-06 19:00] LABS: TOTAL 25(OH) VITAMIN D 53.6 NG/ML (30.0-100.0)
== END ==
LOC: M LAB REF 16:41
PROVIDERS: ATTEND Family Medicine Addiction Medicine
DX: R53.83 Other fatigue (principal); Z00.00 Encounter for general adult medical examination without abnormal findings; Z79.899 Other long term (current) drug therapy

== ENCOUNTER → 2022-04-04 | Outpatient (CLI) | payer MEDICARE, MEDICAID | LOC: M RAD 10:53 | PROVIDERS: ATTEND Nurse Practitioner Family | DX: E03.9 Hypothyroidism, unspecified (principal) ==

== ENCOUNTER → 2022-04-12 | Outpatient (CLI) | payer MEDICARE, MEDICAID | LOC: M RAD 10:28 | PROVIDERS: ATTEND Nurse Practitioner Family | DX: R91.8 Other nonspecific abnormal finding of lung field (principal) ==

== ENCOUNTER → 2022-07-24 | Outpatient (REF) | payer MEDICARE, MEDICAID ==
[2022-07-24 13:53] LABS: BASO # 0.1 10^3/uL (0.0-0.2); BASO % 0.8 % (0.0-1.0); EOS # 0.4 10^3/uL (0.0-0.5); EOS % 4.9 % (0.0-3.0); HEMATOCRIT 43.7 % (36.0-47.0); HEMOGLOBIN 14.7 g/dl (12.0-15.5); LYMPH # 3.8 10^3/uL (1.5-5.0); LYMPH % 41.8 % (24.0-44.0); MEAN CORPUSCULAR HEMOGLOBIN 32.7 pg (27.0-33.0); MEAN CORPUSCULAR HGB CONC 33.6 g/dl (32.0-36.5); MEAN CORPUSCULAR VOLUME 97.1 fl (80.0-96.0); MONO # 0.7 10^3/uL (0.0-0.8); MONO % 7.3 % (2.0-8.0); NEUTROPHILS % 44.9 % (36.0-66.0); PLATELET COUNT, AUTOMATED 452 10^3/uL (150-450)
== END ==
LOC: M LAB REF 12:22
PROVIDERS: ATTEND Nurse Practitioner Family
DX: R89.9 Unspecified abnormal finding in specimens from other organs, systems and tissues (principal)

== ENCOUNTER → 2022-12-20 | Outpatient (REF) | payer MEDICARE, MEDICAID | LOC: M LAB REF 11:53 | PROVIDERS: ATTEND Nurse Practitioner Family | DX: E03.9 Hypothyroidism, unspecified (principal) ==

== ENCOUNTER → 2023-04-02 | Outpatient (REF) | payer MEDICARE, MEDICAID ==
[2023-04-02 17:50] LABS: BASO # 0.1 10^3/uL (0.0-0.2); BASO % 0.7 % (0.0-1.0); EOS # 0.3 10^3/uL (0.0-0.5); EOS % 3.1 % (0.0-3.0); HEMOGLOBIN 15.4 g/dl (12.0-15.5); LYMPH # 3.1 10^3/uL (1.5-5.0); MEAN CORPUSCULAR HGB CONC 33.5 g/dl (32.0-36.5); MEAN CORPUSCULAR VOLUME 98.7 fl (80.0-96.0); MONO # 0.7 10^3/uL (0.0-0.8); MONO % 5.9 % (2.0-8.0); NEUTROPHILS # 6.8 10^3/uL (1.5-8.5); NEUTROPHILS % 62.1 % (36.0-66.0); PLATELET COUNT, AUTOMATED 399 10^3/uL (150-450); RED BLOOD COUNT 4.66 10^6/uL (4.00-5.40); WHITE BLOOD COUNT 10.9 10^3/uL (4.0-10.0)
[2023-04-02 17:52] LABS: THYROID STIMULATING HORMONE 2.753 uIU/ML (0.55-4.78)
== END ==
LOC: M LAB REF 16:32
PROVIDERS: ATTEND Pediatrics
DX: Z87.59 Personal history of other complications of pregnancy, childbirth and the puerperium (principal); E06.3 Autoimmune thyroiditis; R53.83 Other fatigue

== ENCOUNTER → 2023-06-01 | Outpatient (CLI) | payer MEDICARE, MEDICAID ==
[2023-06-01 13:26] LABS: THYROID STIMULATING HORMONE 1.494 uIU/ML (0.55-4.78); THYROXINE (T4) 10.7 UG/DL (4.5-10.9)
[2023-06-01 13:29] LABS: FREE T3 2.8 PG/ML (2.3-4.2)
== END ==
LOC: M LAB 12:29
PROVIDERS: ATTEND Pediatrics
DX: E03.9 Hypothyroidism, unspecified (principal)

== ENCOUNTER → 2023-08-09 | Outpatient (CLI) | payer MEDICARE, MEDICAID ==
[~2023-08-09] MED LIST changes: +CYCL5TAB PO; +IBUP1TAB7 PO; +MAGN200T PO; +OMEG10002 PO; +SYNT88TA2 PO; +VITA100093 PO
[2023-08-09 12:09] LABS: BASO # 0.1 10^3/uL (0.0-0.2); BASO % 0.8 % (0.0-1.0); EOS # 0.4 10^3/uL (0.0-0.5); EOS % 4.3 % (0.0-3.0); HEMATOCRIT 45.1 % (36.0-47.0); LYMPH # 3.7 10^3/uL (1.5-5.0); LYMPH % 38.5 % (24.0-44.0); MEAN CORPUSCULAR HEMOGLOBIN 32.3 pg (27.0-33.0); MEAN CORPUSCULAR HGB CONC 33.3 g/dl (32.0-36.5); MEAN CORPUSCULAR VOLUME 97.2 fl (80.0-96.0); MONO # 0.6 10^3/uL (0.0-0.8); MONO % 6.3 % (2.0-8.0); NEUTROPHILS # 4.8 10^3/uL (1.5-8.5); NEUTROPHILS % 49.9 % (36.0-66.0); PLATELET COUNT, AUTOMATED 483 10^3/uL (150-450); RED BLOOD COUNT 4.64 10^6/uL (4.00-5.40); WHITE BLOOD COUNT 9.5 10^3/uL (4.0-10.0)
[2023-08-09 12:33] LABS: ALBUMIN 3.9 G/DL (3.2-5.2); ALKALINE PHOSPHATASE 56 U/L (46-116); ALT/SGPT 22 U/L (7.0-40); AST/SGOT 22 U/L (<34); BILIRUBIN,TOTAL 0.4 MG/DL (0.3-1.2); BLOOD UREA NITROGEN 9 MG/DL (9-23); CALCIUM LEVEL 9.5 MG/DL (8.5-10.1); CARBON DIOXIDE LEVEL 30 MMOL/L (20-31); CHLORIDE LEVEL 106 MMOL/L (98-107); CHOLESTEROL LEVEL 156 MG/DL (<200); CHOLESTEROL RISK RATIO 3.48 (<5); CREATININE FOR GFR 0.75 MG/DL (0.55-1.30); GLOMERULAR FILTRATION RATE > 60.0 (>58); GLUCOSE, FASTING 90 MG/DL (60-100); HDL CHOLESTEROL 44.7 MG/DL (>40); LDL CHOLESTEROL 76.9 MG/DL (<100); NON-HDL-C 111.3 MG/DL; POTASSIUM SERUM 4.4 MMOL/L (3.5-5.1); SODIUM LEVEL 138 MMOL/L (136-145); TRIGLYCERIDES LEVEL 172 MG/DL (<150)
[2023-08-09 12:35] LABS: TOTAL 25(OH) VITAMIN D 39.3 NG/ML (20.0-100.0)
== END ==
LOC: M LAB 11:03
PROVIDERS: ATTEND Family Medicine
DX: E03.9 Hypothyroidism, unspecified (principal)

== ENCOUNTER 2023-09-19 11:12 | Day surgery (SDC) | payer MEDICARE, MEDICAID ==
[~2023-09-19] VITALS: Ht 162.6 cm; Wt 60.8 kg
[2023-09-19] MEDS: NS 1,000 ML IV ONE (12:30)
[2023-09-19] MEDS ORDERED: propofoL 200 MG/20 ML VIAL As Ordered ONE (13:27)
[2023-09-19 13:52] VITALS: TEMP 97.6
[2023-09-19 14:10] VITALS: BP 127/78; O2SAT 100
== END 2023-09-19 14:20 | disposition home or self-care (01) ==
LOC: M OPP 11:12
PROVIDERS: ATTEND Surgery
DX: Z12.11 Encounter for screening for malignant neoplasm of colon (principal); K64.8 Other hemorrhoids; Z80.0 Family history of malignant neoplasm of digestive organs; J44.9 Chronic obstructive pulmonary disease, unspecified; E03.9 Hypothyroidism, unspecified; D68.51 Activated protein C resistance; Z79.890 Hormone replacement therapy; Z79.899 Other long term (current) drug therapy; Z88.5 Allergy status to narcotic agent; Z88.2 Allergy status to sulfonamides; F17.210 Nicotine dependence, cigarettes, uncomplicated; Z91.041 Radiographic dye allergy status; Z91.018 Allergy to other foods

== ENCOUNTER → 2024-04-10 | Outpatient (CLI) | payer MEDICARE, MEDICAID ==
[~2024-04-10] MED LIST changes: -CYCL5TAB PO; +CYCL5TAB4 PO; +GABA-1172 PO; -GABA-282 PO
== END ==
LOC: M RAD 08:25
PROVIDERS: ATTEND Pediatrics
DX: K43.9 Ventral hernia without obstruction or gangrene (principal)

== ENCOUNTER → 2024-08-22 | Outpatient (CLI) | payer MEDICARE, MEDICAID ==
[~2024-08-22] MED LIST changes: -PREG25CA PO; +PREG25CA63 PO
[2024-08-22 09:09] LABS: BASO # 0.1 10^3/uL (0.0-0.2); BASO % 1.1 % (0.0-1.0); EOS # 0.4 10^3/uL (0.0-0.5); HEMATOCRIT 45.1 % (36.0-47.0); HEMOGLOBIN 15.4 g/dl (12.0-15.5); LYMPH # 3.9 10^3/uL (1.5-5.0); LYMPH % 52.4 % (24.0-44.0); MEAN CORPUSCULAR HEMOGLOBIN 32.5 pg (27.0-33.0); MEAN CORPUSCULAR HGB CONC 34.1 g/dl (32.0-36.5); MEAN CORPUSCULAR VOLUME 95.1 fl (80.0-96.0); MONO # 0.6 10^3/uL (0.0-0.8); MONO % 8.7 % (2.0-8.0); NEUTROPHILS # 2.3 10^3/uL (1.5-8.5); NEUTROPHILS % 31.7 % (36.0-66.0); PLATELET COUNT, AUTOMATED 402 10^3/uL (150-450); RED BLOOD COUNT 4.74 10^6/uL (4.00-5.40); WHITE BLOOD COUNT 7.4 10^3/uL (4.0-10.0)
[2024-08-22 09:40] LABS: FOLATE 11.9 NG/ML (>5.4)
[2024-08-22 09:41] LABS: TOTAL 25(OH) VITAMIN D 33.3 NG/ML (20.0-100.0)
[2024-08-22 09:48] LABS: VITAMIN B12 LEVEL 1689 PG/ML (211-911)
[2024-08-22 12:04] LABS: IRON (FE) 73 UG/DL (50-170); PERCENT SATURATION 20.7 % (13.2-45.0); TOTAL IRON BINDING CAPACITY 352 UG/DL (250-425)
[2024-08-22 12:05] LABS: ALBUMIN 3.8 G/DL (3.2-5.2); ALKALINE PHOSPHATASE 60 U/L (35-104); ALT/SGPT 38 U/L (7.0-40); AST/SGOT 24 U/L (<34); BILIRUBIN,TOTAL 0.4 MG/DL (0.3-1.2); BLOOD UREA NITROGEN 15 MG/DL (9-23); CALCIUM LEVEL 9.2 MG/DL (8.5-10.1); CARBON DIOXIDE LEVEL 24 MMOL/L (20-31); CHLORIDE LEVEL 107 MMOL/L (98-107); CREATININE FOR GFR 0.68 MG/DL (0.55-1.30); GLOMERULAR FILTRATION RATE > 90.0 (>58); GLUCOSE, FASTING 88 MG/DL (60-100); POTASSIUM SERUM 4.6 MMOL/L (3.5-5.1); SODIUM LEVEL 137 MMOL/L (136-145); TOTAL PROTEIN 7.4 G/DL (5.7-8.2)
== END ==
LOC: M LAB 08:21
PROVIDERS: ATTEND Nurse Practitioner Family
DX: Z00.00 Encounter for general adult medical examination without abnormal findings (principal); E55.9 Vitamin D deficiency, unspecified; R53.83 Other fatigue; E03.9 Hypothyroidism, unspecified

== ENCOUNTER → 2024-08-22 | Outpatient (CLI) | payer MEDICARE, MEDICAID ==
[~2024-08-22] MED LIST changes: +PREG25CA PO; -PREG25CA63 PO
[2024-08-22 09:40] LABS: FREE T4 1.35 NG/DL (0.89-1.76); THYROID STIMULATING HORMONE 3.083 uIU/ML (0.55-4.78)
[2024-08-22 09:42] LABS: FREE T3 3.1 PG/ML (2.3-4.2)
== END ==
LOC: M LAB 08:19
PROVIDERS: ATTEND Internal Medicine
DX: E03.9 Hypothyroidism, unspecified (principal)

== ENCOUNTER → 2025-03-08 | Outpatient (CLI) | payer MEDICARE, MEDICAID ==
[~2025-03-08] MED LIST changes: -PREG25CA PO; +PREG25CA63 PO
[2025-03-08 11:05] LABS: FREE T4 1.06 NG/DL (0.89-1.76)
== END ==
LOC: M LAB 10:02
PROVIDERS: ATTEND Internal Medicine
DX: E03.9 Hypothyroidism, unspecified (principal)